=== PATIENT | male | born 1975 | race African-American/Black ===

== ENCOUNTER 2020-09-30 11:24 | Inpatient (IN) | payer OTHER, MEDICAID ==
[~2020-09-30] VITALS: Ht 180.3 cm; Wt 131.1 kg
[2020-09-30] MEDS ORDERED: ACETAMINOPHEN 325MG TABLET PO STA (11:45)
[2020-09-30] MEDS ORDERED: DEXAMETHASONE 4MG/ML 1ML VIAL IV ONE (11:45)
[2020-09-30 12:22] LABS: BASOPHILS % 0.1 % (0.0-2.0); HEMATOCRIT. 43.2 % (42.0-52.0); HEMOGLOBIN. 14.6 g/dL (14.0-18.0); LYMPHOCYTES % 17.6 % (20.0-50.0); MEAN CORPUSCULAR HEMOGLOBIN 30.9 pg (28.0-32.0); MEAN CORPUSCULAR VOLUME 91.6 fL (80.0-94.0); MEAN PLATELET VOLUME 8.3 fl (7.4-10.4); MONOCYTES % 10.7 % (2.0-8.0); NEUTROPHILS % 71.6 % (40.0-76.0); PLATELET 121 x1000/uL (130-400); RED BLOOD CELL COUNT 4.72 mill/uL (4.7-6.1); RED CELL DISTRIBUTION WIDTH 14.4 % (11.6-14.6)
[2020-09-30 12:27] LABS: CHLORIDE 109 mEq/L (98-107)
[2020-09-30] MEDS ORDERED: DEXAMETHASONE 10 MG/ML VIAL IV NR (12:45)
[2020-09-30] MEDS ORDERED: ZOLPIDEM TARTRATE 5MG TABLET PO PRN (15:30)
[2020-09-30] MEDS ORDERED: KETOROLAC 15MG/ML VIAL IV PRN (15:30)
[2020-09-30] MEDS ORDERED: CLONIDINE 0.1MG TABLET PO PRN (15:30)
[2020-09-30] MEDS ORDERED: MAGNESIUM/ALUMINUM HYDROXIDE/SIMETHICONE 30ML UDC PO PRN (15:30)
[2020-09-30] MEDS ORDERED: ONDANSETRON HCL 4MG/2ML INJ IV PRN (15:30)
[2020-09-30] MEDS ORDERED: ALBUTEROL 6.7GM HFA INHALER ORI PRN (15:30)
[2020-09-30] MEDS ORDERED: NITROGLYCERIN 0.4MG TABLET SL SL PRN (15:30)
[2020-09-30 16:36] LABS: FOLIC ACID (FOLATE) SERUM 12.7 ng/mL (>5.38)
[2020-09-30] MEDS ORDERED: AZITHROMYCIN 500 MG in DEXT 5% WATER 250 ML IV SCH (17:30)
[2020-09-30] MEDS: GUAIFENESIN/DM 600MG/30MG ER TAB 12HR PO SCH (17:57)
[2020-09-30] MEDS: ENOXAPARIN 30MG/0.3ML SYR SUBCUT SCH (18:00)
[2020-09-30] MEDS: ALBUTEROL 6.7GM HFA INHALER ORI SCH (21:00)
[2020-09-30 22:00] VITALS: BP 140/89
[2020-09-30] MEDS: FAMOTIDINE 20MG TABLET PO SCH (22:13)
[2020-09-30] MEDS: ASCORBIC ACID 500 MG TABLET PO SCH (22:13)
[2020-10-01] VITALS: BP 130/83
[2020-10-01 00:28] LABS: CREATINE KINASE 177 IU/L (39-308)
[2020-10-01 00:29] LABS: CREATINE KINASE MB FRACTION 1.7 ng/mL (0.5-3.6)
[2020-10-01] MEDS: ALBUTEROL 6.7GM HFA INHALER ORI SCH (03:00)
[2020-10-01] MEDS: GUAIFENESIN 200MG/10ML SUGAR FREE UDC PO PRN (03:50)
[2020-10-01 04:00] VITALS: BP 128/88
[2020-10-01] MEDS: GUAIFENESIN/DM 600MG/30MG ER TAB 12HR PO SCH ×2 (05:11→17:14)
[2020-10-01 06:07] LABS: CHLORIDE 107 mEq/L (98-107)
[2020-10-01 06:11] LABS: BASOPHILS % 0.1 % (0.0-2.0); HEMATOCRIT. 40.1 % (42.0-52.0); HEMOGLOBIN. 13.8 g/dL (14.0-18.0); LYMPHOCYTES % 12.6 % (20.0-50.0); MEAN CORPUSCULAR VOLUME 90.3 fL (80.0-94.0); MEAN PLATELET VOLUME 8.8 fl (7.4-10.4); MONOCYTES % 9.5 % (2.0-8.0); NEUTROPHILS % 77.8 % (40.0-76.0); PLATELET 130 x1000/uL (130-400); RED BLOOD CELL COUNT 4.45 mill/uL (4.7-6.1); RED CELL DISTRIBUTION WIDTH 14.1 % (11.6-14.6)
[2020-10-01 06:17] LABS: PHOSPHORUS 3.6 mg/dL (2.5-4.9)
[2020-10-01 06:19] LABS: CREATINE KINASE 137 IU/L (39-308)
[2020-10-01 06:23] LABS: CREATINE KINASE MB FRACTION 1.4 ng/mL (0.5-3.6)
[2020-10-01 08:00] VITALS: BP 131/88
[2020-10-01] MEDS: CHOLECALCIFEROL (D3) 1000 UNIT TABLET PO SCH (08:47)
[2020-10-01] MEDS: DEXAMETHASONE 10 MG/ML VIAL IV SCH (08:47)
[2020-10-01] MEDS: ASCORBIC ACID 500 MG TABLET PO SCH ×2 (08:47→21:11)
[2020-10-01] MEDS: FAMOTIDINE 20MG TABLET PO SCH ×2 (08:47→21:11)
[2020-10-01] MEDS: ZINC SULFATE 220 MG ( 50 ) CAPSULE PO SCH (08:47)
[2020-10-01] MEDS: ENOXAPARIN 30MG/0.3ML SYR SUBCUT SCH (08:47)
[2020-10-01] MEDS: ACETAMINOPHEN 325MG TABLET PO PRN (09:13)
[2020-10-01 12:00] VITALS: BP 127/79
[2020-10-01 16:00] VITALS: BP 138/84
[2020-10-01] MEDS ORDERED: CEFTRIAXONE 1 G PREMIX 50 ML IV SCH (16:30)
[2020-10-01] MEDS: ENOXAPARIN 40MG/0.4ML SYR SUBCUT SCH (17:14)
[2020-10-01] MEDS: AZITHROMYCIN 500 MG in DEXT 5% WATER 250 ML IV SCH (17:53)
[2020-10-01] MEDS: CEFTRIAXONE 1,000 MG in DEXTROSE 5% WATER 50 ML IV SCH (19:56)
[2020-10-01 20:00] VITALS: BP 136/85
[2020-10-02] VITALS: BP 125/85
[2020-10-02 04:00] VITALS: BP 127/89
[2020-10-02] MEDS: ENOXAPARIN 40MG/0.4ML SYR SUBCUT SCH ×2 (06:20→17:07)
[2020-10-02] MEDS: GUAIFENESIN/DM 600MG/30MG ER TAB 12HR PO SCH ×2 (06:20→17:06)
[2020-10-02 08:00] VITALS: BP 133/92
[2020-10-02] MEDS: ZINC SULFATE 220 MG ( 50 ) CAPSULE PO SCH (08:26)
[2020-10-02] MEDS: FAMOTIDINE 20MG TABLET PO SCH ×2 (08:26→20:47)
[2020-10-02] MEDS: GUAIFENESIN 200MG/10ML SUGAR FREE UDC PO PRN ×2 (08:26→14:20)
[2020-10-02] MEDS: CHOLECALCIFEROL (D3) 1000 UNIT TABLET PO SCH (08:26)
[2020-10-02] MEDS: ASCORBIC ACID 500 MG TABLET PO SCH ×2 (08:26→20:47)
[2020-10-02] MEDS: DEXAMETHASONE 10 MG/ML VIAL IV SCH (08:29)
[2020-10-02] MEDS: ALBUTEROL 6.7GM HFA INHALER ORI SCH ×3 (10:49→20:47)
[2020-10-02 12:00] VITALS: BP 127/79
[2020-10-02 16:00] VITALS: BP 132/72
[2020-10-02] MEDS: AZITHROMYCIN 500 MG in DEXT 5% WATER 250 ML IV SCH (17:06)
[2020-10-02] MEDS: CEFTRIAXONE 1,000 MG in DEXTROSE 5% WATER 50 ML IV SCH (18:00)
[2020-10-02 20:25] VITALS: BP 142/93
[2020-10-03] VITALS: BP 134/92
[2020-10-03] MEDS: ALBUTEROL 6.7GM HFA INHALER ORI SCH ×4 (03:00→21:27)
[2020-10-03 04:00] VITALS: BP 128/91
[2020-10-03] MEDS: ENOXAPARIN 40MG/0.4ML SYR SUBCUT SCH ×2 (05:21→18:30)
[2020-10-03] MEDS: GUAIFENESIN/DM 600MG/30MG ER TAB 12HR PO SCH ×2 (05:21→18:30)
[2020-10-03 08:00] VITALS: BP 120/79
[2020-10-03] MEDS: DEXAMETHASONE 10 MG/ML VIAL IV SCH (08:53)
[2020-10-03] MEDS: CHOLECALCIFEROL (D3) 1000 UNIT TABLET PO SCH (08:54)
[2020-10-03] MEDS: ASCORBIC ACID 500 MG TABLET PO SCH ×2 (08:54→21:27)
[2020-10-03] MEDS: ZINC SULFATE 220 MG ( 50 ) CAPSULE PO SCH (08:54)
[2020-10-03] MEDS: FAMOTIDINE 20MG TABLET PO SCH ×2 (08:54→21:27)
[2020-10-03 12:00] VITALS: BP 124/84
[2020-10-03 16:00] VITALS: BP 126/81
[2020-10-03] MEDS: CEFTRIAXONE 1,000 MG in DEXTROSE 5% WATER 50 ML IV SCH (18:30)
[2020-10-03] MEDS: AZITHROMYCIN 500 MG in DEXT 5% WATER 250 ML IV SCH (19:10)
[2020-10-03 20:00] VITALS: BP 148/94
[2020-10-04] VITALS: BP 140/74
[2020-10-04] MEDS: ALBUTEROL 6.7GM HFA INHALER ORI SCH ×4 (03:23→21:42)
[2020-10-04 04:00] VITALS: BP 115/83
[2020-10-04] MEDS: GUAIFENESIN/DM 600MG/30MG ER TAB 12HR PO SCH ×2 (05:26→17:57)
[2020-10-04] MEDS: ENOXAPARIN 40MG/0.4ML SYR SUBCUT SCH ×2 (05:26→17:57)
[2020-10-04 08:00] VITALS: BP 137/90
[2020-10-04] MEDS: FAMOTIDINE 20MG TABLET PO SCH ×2 (08:51→21:42)
[2020-10-04] MEDS: CHOLECALCIFEROL (D3) 1000 UNIT TABLET PO SCH (08:51)
[2020-10-04] MEDS: DEXAMETHASONE 10 MG/ML VIAL IV SCH (08:51)
[2020-10-04] MEDS: ASCORBIC ACID 500 MG TABLET PO SCH ×2 (08:51→21:42)
[2020-10-04] MEDS: ACETAMINOPHEN 325MG TABLET PO PRN (08:51)
[2020-10-04] MEDS: ZINC SULFATE 220 MG ( 50 ) CAPSULE PO SCH (08:52)
[2020-10-04 12:00] VITALS: BP 128/86
[2020-10-04 16:00] VITALS: BP 128/88
[2020-10-04] MEDS: CEFTRIAXONE 1,000 MG in DEXTROSE 5% WATER 50 ML IV SCH (17:57)
[2020-10-04] MEDS: AZITHROMYCIN 500 MG in DEXT 5% WATER 250 ML IV SCH (18:45)
[2020-10-04 20:00] VITALS: BP 128/83
[2020-10-05] VITALS: BP 117/84
[2020-10-05] MEDS: ALBUTEROL 6.7GM HFA INHALER ORI SCH ×4 (03:50→21:20)
[2020-10-05 04:00] VITALS: BP 123/77
[2020-10-05] MEDS: GUAIFENESIN/DM 600MG/30MG ER TAB 12HR PO SCH ×2 (05:15→18:22)
[2020-10-05] MEDS: ENOXAPARIN 40MG/0.4ML SYR SUBCUT SCH ×2 (05:16→18:22)
[2020-10-05 08:00] VITALS: BP 110/62
[2020-10-05] MEDS: FAMOTIDINE 20MG TABLET PO SCH ×2 (08:18→21:19)
[2020-10-05] MEDS: CHOLECALCIFEROL (D3) 1000 UNIT TABLET PO SCH (08:18)
[2020-10-05] MEDS: ZINC SULFATE 220 MG ( 50 ) CAPSULE PO SCH (08:18)
[2020-10-05] MEDS: ASCORBIC ACID 500 MG TABLET PO SCH ×2 (08:18→21:19)
[2020-10-05] MEDS: ACETAMINOPHEN 325MG TABLET PO PRN (08:18)
[2020-10-05] MEDS: DEXAMETHASONE 10 MG/ML VIAL IV SCH (08:18)
[2020-10-05 12:00] VITALS: BP 134/91
[2020-10-05 15:50] VITALS: BP 130/76
[2020-10-05] MEDS: CEFTRIAXONE 1,000 MG in DEXTROSE 5% WATER 50 ML IV SCH (18:22)
[2020-10-05 20:00] VITALS: BP 128/89
[2020-10-06] VITALS: BP 133/86
[2020-10-06] MEDS: ALBUTEROL 6.7GM HFA INHALER ORI SCH ×4 (02:46→21:43)
[2020-10-06] MEDS: GUAIFENESIN 200MG/10ML SUGAR FREE UDC PO PRN (02:46)
[2020-10-06 04:00] VITALS: BP 109/70
[2020-10-06] MEDS: GUAIFENESIN/DM 600MG/30MG ER TAB 12HR PO SCH ×2 (06:12→18:05)
[2020-10-06] MEDS: ENOXAPARIN 40MG/0.4ML SYR SUBCUT SCH ×2 (06:13→18:05)
[2020-10-06 08:00] VITALS: BP 105/68
[2020-10-06] MEDS: ZINC SULFATE 220 MG ( 50 ) CAPSULE PO SCH (08:28)
[2020-10-06] MEDS: ASCORBIC ACID 500 MG TABLET PO SCH ×2 (08:28→21:42)
[2020-10-06] MEDS: CHOLECALCIFEROL (D3) 1000 UNIT TABLET PO SCH (08:28)
[2020-10-06] MEDS: FAMOTIDINE 20MG TABLET PO SCH ×2 (08:28→21:42)
[2020-10-06] MEDS: ACETAMINOPHEN 325MG TABLET PO PRN (08:29)
[2020-10-06] MEDS: DEXAMETHASONE 10 MG/ML VIAL IV SCH (08:29)
[2020-10-06 12:00] VITALS: BP 108/59
[2020-10-06 16:00] VITALS: BP 121/84
[2020-10-06] MEDS: CEFTRIAXONE 1,000 MG in DEXTROSE 5% WATER 50 ML IV SCH (18:05)
[2020-10-06 20:00] VITALS: BP 131/88
[2020-10-07] VITALS: BP 129/79
[2020-10-07] MEDS: GUAIFENESIN 200MG/10ML SUGAR FREE UDC PO PRN (01:36)
[2020-10-07] MEDS: ALBUTEROL 6.7GM HFA INHALER ORI SCH ×4 (03:24→21:18)
[2020-10-07 04:00] VITALS: BP 121/85
[2020-10-07] MEDS: GUAIFENESIN/DM 600MG/30MG ER TAB 12HR PO SCH ×2 (06:11→17:29)
[2020-10-07] MEDS: ENOXAPARIN 40MG/0.4ML SYR SUBCUT SCH ×2 (06:11→17:30)
[2020-10-07 08:00] VITALS: BP 119/78
[2020-10-07] MEDS: FAMOTIDINE 20MG TABLET PO SCH ×2 (08:51→21:18)
[2020-10-07] MEDS: DEXAMETHASONE 10 MG/ML VIAL IV SCH (08:51)
[2020-10-07] MEDS: CHOLECALCIFEROL (D3) 1000 UNIT TABLET PO SCH (08:51)
[2020-10-07] MEDS: ASCORBIC ACID 500 MG TABLET PO SCH ×2 (08:51→21:18)
[2020-10-07] MEDS: ZINC SULFATE 220 MG ( 50 ) CAPSULE PO SCH (08:51)
[2020-10-07 12:00] VITALS: BP 133/76
[2020-10-07 16:00] VITALS: BP 128/83
[2020-10-07 20:00] VITALS: BP 129/83
[2020-10-08] VITALS (7 sets, daily range): BP systolic 106–123; BP diastolic 62–75
[2020-10-08] MEDS: ALBUTEROL 6.7GM HFA INHALER ORI SCH ×4 (03:51→21:05)
[2020-10-08] MEDS: ACETAMINOPHEN 325MG TABLET PO PRN ×2 (03:53→08:39)
[2020-10-08] MEDS: ENOXAPARIN 40MG/0.4ML SYR SUBCUT SCH ×2 (06:00→17:06)
[2020-10-08] MEDS: GUAIFENESIN/DM 600MG/30MG ER TAB 12HR PO SCH ×2 (06:00→17:06)
[2020-10-08] MEDS: GUAIFENESIN 200MG/10ML SUGAR FREE UDC PO PRN (07:57)
[2020-10-08] MEDS: CHOLECALCIFEROL (D3) 1000 UNIT TABLET PO SCH (08:00)
[2020-10-08] MEDS: DEXAMETHASONE 10 MG/ML VIAL IV SCH (08:00)
[2020-10-08] MEDS: ZINC SULFATE 220 MG ( 50 ) CAPSULE PO SCH (08:00)
[2020-10-08] MEDS: FAMOTIDINE 20MG TABLET PO SCH ×2 (08:00→21:05)
[2020-10-08] MEDS: ASCORBIC ACID 500 MG TABLET PO SCH ×2 (08:00→21:05)
[2020-10-09] MEDS: GUAIFENESIN 200MG/10ML SUGAR FREE UDC PO PRN (02:16)
[2020-10-09] MEDS: ALBUTEROL 6.7GM HFA INHALER ORI SCH ×4 (02:40→20:01)
[2020-10-09 04:00] VITALS: BP 100/70
[2020-10-09] MEDS: GUAIFENESIN/DM 600MG/30MG ER TAB 12HR PO SCH ×2 (05:23→17:04)
[2020-10-09] MEDS: ENOXAPARIN 40MG/0.4ML SYR SUBCUT SCH ×2 (05:24→17:05)
[2020-10-09] MEDS: ACETAMINOPHEN 325MG TABLET PO PRN (05:55)
[2020-10-09] MEDS: FAMOTIDINE 20MG TABLET PO SCH ×2 (08:05→20:00)
[2020-10-09] MEDS: ZINC SULFATE 220 MG ( 50 ) CAPSULE PO SCH (08:05)
[2020-10-09] MEDS: ASCORBIC ACID 500 MG TABLET PO SCH ×2 (08:05→20:00)
[2020-10-09] MEDS: DEXAMETHASONE 10 MG/ML VIAL IV SCH (08:05)
[2020-10-09] MEDS: CHOLECALCIFEROL (D3) 1000 UNIT TABLET PO SCH (08:05)
[2020-10-09 20:00] VITALS: BP 124/84
[2020-10-10] VITALS: BP 117/72
[2020-10-10] MEDS: ALBUTEROL 6.7GM HFA INHALER ORI SCH ×4 (01:39→20:42)
[2020-10-10 04:00] VITALS: BP 134/81
[2020-10-10] MEDS: ENOXAPARIN 40MG/0.4ML SYR SUBCUT SCH ×2 (05:50→17:44)
[2020-10-10] MEDS: GUAIFENESIN/DM 600MG/30MG ER TAB 12HR PO SCH ×2 (05:50→17:45)
[2020-10-10 06:58] LABS: CHLORIDE 105 mEq/L (98-107)
[2020-10-10 07:00] LABS: HEMATOCRIT. 40.4 % (42.0-52.0); HEMOGLOBIN. 13.8 g/dL (14.0-18.0); MEAN CORPUSCULAR HEMOGLOBIN 31.3 pg (28.0-32.0); MEAN CORPUSCULAR VOLUME 91.4 fL (80.0-94.0); MEAN PLATELET VOLUME 8.5 fl (7.4-10.4); PLATELET 220 x1000/uL (130-400); RED BLOOD CELL COUNT 4.42 mill/uL (4.7-6.1); RED CELL DISTRIBUTION WIDTH 14.2 % (11.6-14.6)
[2020-10-10 08:00] VITALS: BP 120/89
[2020-10-10] MEDS: FAMOTIDINE 20MG TABLET PO SCH ×2 (09:27→20:42)
[2020-10-10] MEDS: DEXAMETHASONE 10 MG/ML VIAL IV SCH (09:27)
[2020-10-10] MEDS: ZINC SULFATE 220 MG ( 50 ) CAPSULE PO SCH (09:28)
[2020-10-10] MEDS: CHOLECALCIFEROL (D3) 1000 UNIT TABLET PO SCH (09:28)
[2020-10-10] MEDS: ASCORBIC ACID 500 MG TABLET PO SCH ×2 (09:28→20:42)
[2020-10-10] MEDS: GUAIFENESIN 200MG/10ML SUGAR FREE UDC PO PRN (10:47)
[2020-10-10 12:00] VITALS: BP 112/78
[2020-10-10 16:00] VITALS: BP 116/86
[2020-10-10 17:30] LABS: PLATELET ESTIMATE NORMAL
[2020-10-10 20:00] VITALS: BP 135/83
[2020-10-11] VITALS (8 sets, daily range): BP systolic 80–146; BP diastolic 66–85
[2020-10-11] MEDS: ENOXAPARIN 40MG/0.4ML SYR SUBCUT SCH ×2 (05:20→18:03)
[2020-10-11] MEDS: ALBUTEROL 6.7GM HFA INHALER ORI SCH ×4 (05:20→20:25)
[2020-10-11] MEDS: GUAIFENESIN/DM 600MG/30MG ER TAB 12HR PO SCH ×2 (05:20→18:03)
[2020-10-11] MEDS: ZINC SULFATE 220 MG ( 50 ) CAPSULE PO SCH (09:00)
[2020-10-11] MEDS: CHOLECALCIFEROL (D3) 1000 UNIT TABLET PO SCH (09:00)
[2020-10-11] MEDS: ASCORBIC ACID 500 MG TABLET PO SCH ×2 (09:00→20:22)
[2020-10-11] MEDS: DEXAMETHASONE 10 MG/ML VIAL IV SCH (09:00)
[2020-10-11] MEDS: FAMOTIDINE 20MG TABLET PO SCH ×2 (09:00→20:22)
[2020-10-12] VITALS (75 sets, daily range): BP systolic 110–173; BP diastolic 43–111
[2020-10-12 05:10] LABS: CHLORIDE 106 mEq/L (98-107); MEAN CORPUSCULAR HEMOGLOBIN 30.9 pg (28.0-32.0); MEAN CORPUSCULAR VOLUME 92.7 fL (80.0-94.0); MEAN PLATELET VOLUME 8.7 fl (7.4-10.4); PLATELET 186 x1000/uL (130-400); RED BLOOD CELL COUNT 4.86 mill/uL (4.7-6.1); RED CELL DISTRIBUTION WIDTH 14.4 % (11.6-14.6)
[2020-10-12] MEDS: ENOXAPARIN 40MG/0.4ML SYR SUBCUT SCH ×2 (06:33→18:53)
[2020-10-12] MEDS: GUAIFENESIN/DM 600MG/30MG ER TAB 12HR PO SCH (06:33)
[2020-10-12 08:37] LABS: BG BASE EXCESS -0.9 mmol/L (-2.0-2.0); BG CARBOXYHEMOGLOBIN 0.5 % (0.5-1.5); BG DEOXYHEMOGLOBIN 5.2 % (0.0-5.0); BG HCO3 ACT 23.3 mmol/L (22.0-26.0); BG METHEMOGLOBIN 0.1 % (0.0-1.5); BG OXYGEN SATURATION 94.8 % (92.0-98.5); BG OXYHEMOGLOBIN 94.2 % (94.0-97.0); BG PCO2 37.5 mmHg (35.0-45.0); BG PH 7.411 (7.350-7.450); BG PO2 79.8 mmHg (75.0-100.0); BG SAMPLE SITE RIGHT RADIAL; BG TOTAL HEMOGLOBIN 15.1 g/dL (12.0-18.0); BG VENT MODE MASK - CPAP
[2020-10-12] MEDS: ASCORBIC ACID 500 MG TABLET PO SCH ×2 (09:23→20:09)
[2020-10-12] MEDS: DEXAMETHASONE 10 MG/ML VIAL IV SCH (09:23)
[2020-10-12] MEDS: ZINC SULFATE 220 MG ( 50 ) CAPSULE PO SCH (09:23)
[2020-10-12] MEDS: CHOLECALCIFEROL (D3) 1000 UNIT TABLET PO SCH (09:23)
[2020-10-12] MEDS: FAMOTIDINE 20MG TABLET PO SCH ×2 (09:23→20:09)
[2020-10-12] MEDS ORDERED: LOPERAMIDE HCL 2MG CAPSULE PO PRN (13:00)
[2020-10-12 17:01] LABS: PLATELET ESTIMATE NORMAL
[2020-10-12] MEDS: IPRATROPIUM/ALBUTEROL 0.5-3(2.5)MG/3ML NEB HHN SCH (20:32)
[2020-10-13] VITALS (48 sets, daily range): BP systolic 72–160; BP diastolic 31–97
[2020-10-13] MEDS: IPRATROPIUM/ALBUTEROL 0.5-3(2.5)MG/3ML NEB HHN SCH ×4 (00:48→21:14)
[2020-10-13] MEDS: ENOXAPARIN 40MG/0.4ML SYR SUBCUT SCH (06:16)
[2020-10-13] MEDS: FAMOTIDINE 20MG TABLET PO SCH ×2 (09:32→21:47)
[2020-10-13] MEDS: ASCORBIC ACID 500 MG TABLET PO SCH ×2 (09:32→21:47)
[2020-10-13] MEDS: ZINC SULFATE 220 MG ( 50 ) CAPSULE PO SCH (09:32)
[2020-10-13] MEDS: DEXAMETHASONE 10 MG/ML VIAL IV SCH (09:32)
[2020-10-13] MEDS: CHOLECALCIFEROL (D3) 1000 UNIT TABLET PO SCH (09:32)
[2020-10-13] MEDS: DEXT 5%/0.45% NACL 1000ML 1,000 ML IV SCH (10:58)
[2020-10-13] MEDS: CEFEPIME 2,000 MG in DEXT 5% WATER 100 ML IV SCH (13:58)
[2020-10-13] MEDS: ENOXAPARIN 30MG/0.3ML SYR SUBCUT SCH (17:26)
[2020-10-14] VITALS (41 sets, daily range): BP systolic 99–152; BP diastolic 42–107
[2020-10-14] MEDS: IPRATROPIUM/ALBUTEROL 0.5-3(2.5)MG/3ML NEB HHN SCH ×4 (01:06→20:38)
[2020-10-14] MEDS: ENOXAPARIN 30MG/0.3ML SYR SUBCUT SCH ×2 (05:13→17:35)
[2020-10-14] MEDS: DEXT 5%/0.45% NACL 1000ML 1,000 ML IV SCH (07:52)
[2020-10-14] MEDS: GUAIFENESIN 200MG/10ML SUGAR FREE UDC PO PRN (08:46)
[2020-10-14] MEDS: FAMOTIDINE 20MG TABLET PO SCH ×2 (08:47→20:50)
[2020-10-14] MEDS: DEXAMETHASONE 10 MG/ML VIAL IV SCH (08:47)
[2020-10-14] MEDS: ASCORBIC ACID 500 MG TABLET PO SCH ×2 (08:48→20:50)
[2020-10-14] MEDS: CHOLECALCIFEROL (D3) 1000 UNIT TABLET PO SCH (08:48)
[2020-10-14] MEDS: ZINC SULFATE 220 MG ( 50 ) CAPSULE PO SCH (08:54)
[2020-10-14 10:08] LABS: BG BASE EXCESS 2.9 mmol/L (-2.0-2.0); BG CARBOXYHEMOGLOBIN 0.1 % (0.5-1.5); BG DEOXYHEMOGLOBIN 10.1 % (0.0-5.0); BG FRACTION INSPIRED OXYGEN 100; BG HCO3 ACT 28.2 mmol/L (22.0-26.0); BG METHEMOGLOBIN 0.3 % (0.0-1.5); BG OXYGEN SATURATION 89.9 % (92.0-98.5); BG OXYHEMOGLOBIN 89.5 % (94.0-97.0); BG PCO2 45.3 mmHg (35.0-45.0); BG PH 7.412 (7.350-7.450); BG PO2 60.4 mmHg (75.0-100.0); BG SAMPLE SITE LEFT RADIAL; BG TOTAL HEMOGLOBIN 15.9 g/dL (12.0-18.0); BG TOTAL RESPIRATORY RATE 30 b/min; BG VENT MODE VENT - CPAP
[2020-10-14] MEDS: CEFEPIME 2,000 MG in DEXT 5% WATER 100 ML IV SCH ×3 (11:40→23:50)
[2020-10-15] VITALS (44 sets, daily range): BP systolic 113–171; BP diastolic 63–118
[2020-10-15] MEDS: IPRATROPIUM/ALBUTEROL 0.5-3(2.5)MG/3ML NEB HHN SCH ×4 (02:07→20:53)
[2020-10-15] MEDS: DEXT 5%/0.45% NACL 1000ML 1,000 ML IV SCH ×2 (02:44→18:26)
[2020-10-15] MEDS: ENOXAPARIN 30MG/0.3ML SYR SUBCUT SCH ×2 (06:35→18:06)
[2020-10-15] MEDS: ASCORBIC ACID 500 MG TABLET PO SCH ×2 (09:42→20:13)
[2020-10-15] MEDS: CHOLECALCIFEROL (D3) 1000 UNIT TABLET PO SCH (09:42)
[2020-10-15] MEDS: DEXAMETHASONE 10 MG/ML VIAL IV SCH (09:42)
[2020-10-15] MEDS: ZINC SULFATE 220 MG ( 50 ) CAPSULE PO SCH (09:42)
[2020-10-15] MEDS: FAMOTIDINE 20MG TABLET PO SCH ×2 (09:43→20:13)
[2020-10-15] MEDS: CEFEPIME 2,000 MG in DEXT 5% WATER 100 ML IV SCH ×2 (12:18→23:38)
[2020-10-15 12:25] LABS: HEMATOCRIT. 41.5 % (42.0-52.0); HEMOGLOBIN. 13.9 g/dL (14.0-18.0); MEAN CORPUSCULAR HEMOGLOBIN 30.4 pg (28.0-32.0); MEAN CORPUSCULAR VOLUME 91.1 fL (80.0-94.0); MEAN PLATELET VOLUME 8.3 fl (7.4-10.4); PLATELET 173 x1000/uL (130-400); RED BLOOD CELL COUNT 4.56 mill/uL (4.7-6.1); RED CELL DISTRIBUTION WIDTH 14.1 % (11.6-14.6)
[2020-10-15 12:28] LABS: CHLORIDE 107 mEq/L (98-107)
[2020-10-15 14:46] LABS: PLATELET ESTIMATE NORMAL
[2020-10-15] MEDS ORDERED: LORAZEPAM 2MG/ML CPJ IV PRN (19:15)
[2020-10-16] VITALS (48 sets, daily range): BP systolic 111–170; BP diastolic 34–108
[2020-10-16] MEDS: IPRATROPIUM/ALBUTEROL 0.5-3(2.5)MG/3ML NEB HHN SCH ×4 (01:23→21:05)
[2020-10-16] MEDS: ENOXAPARIN 30MG/0.3ML SYR SUBCUT SCH ×2 (06:08→17:58)
[2020-10-16] MEDS: CHOLECALCIFEROL (D3) 1000 UNIT TABLET PO SCH (08:39)
[2020-10-16] MEDS: DEXAMETHASONE 10 MG/ML VIAL IV SCH (08:39)
[2020-10-16] MEDS: ZINC SULFATE 220 MG ( 50 ) CAPSULE PO SCH (08:39)
[2020-10-16] MEDS: FAMOTIDINE 20MG TABLET PO SCH ×2 (08:39→21:11)
[2020-10-16] MEDS: ASCORBIC ACID 500 MG TABLET PO SCH ×2 (08:39→21:11)
[2020-10-16] MEDS: CEFEPIME 2,000 MG in DEXT 5% WATER 100 ML IV SCH ×2 (11:53→23:42)
[2020-10-16] MEDS: DEXT 5%/0.45% NACL 1000ML 1,000 ML IV SCH (15:26)
[2020-10-17] VITALS (89 sets, daily range): BP systolic 62–260; BP diastolic 41–139
[2020-10-17] MEDS: IPRATROPIUM/ALBUTEROL 0.5-3(2.5)MG/3ML NEB HHN SCH ×4 (00:45→20:34)
[2020-10-17 02:01] LABS: BG BASE EXCESS 1.4 mmol/L (-2.0-2.0); BG CARBOXYHEMOGLOBIN 0.8 % (0.5-1.5); BG DEOXYHEMOGLOBIN 27.2 % (0.0-5.0); BG FRACTION INSPIRED OXYGEN 100; BG HCO3 ACT 26.1 mmol/L (22.0-26.0); BG METHEMOGLOBIN 0.3 % (0.0-1.5); BG OXYGEN SATURATION 72.5 % (92.0-98.5); BG OXYHEMOGLOBIN 71.7 % (94.0-97.0); BG PCO2 41.5 mmHg (35.0-45.0); BG PH 7.416 (7.350-7.450); BG PO2 39.1 mmHg (75.0-100.0); BG SAMPLE SITE RIGHT RADIAL; BG TOTAL HEMOGLOBIN 15.6 g/dL (12.0-18.0); BG VENT MODE MASK - CPAP
[2020-10-17] MEDS: PROPOFOL 10MG/ML 100ML 100 ML IV PRN ×6 (04:00→20:32)
[2020-10-17 04:02] LABS: BG BASE EXCESS -2.4 mmol/L (-2.0-2.0); BG CARBOXYHEMOGLOBIN 1.2 % (0.5-1.5); BG DEOXYHEMOGLOBIN 50.2 % (0.0-5.0); BG FRACTION INSPIRED OXYGEN 100; BG OXYGEN SATURATION 49.2 % (92.0-98.5); BG OXYHEMOGLOBIN 48.6 % (94.0-97.0); BG PCO2 59.3 mmHg (35.0-45.0); BG SAMPLE SITE RIGHT RADIAL; BG TOTAL HEMOGLOBIN 16.1 g/dL (12.0-18.0); BG VENT MODE PRVC
[2020-10-17] MEDS: FENTANYL CITRATE/PF 2,500 MCG in SODIUM CHLORIDE 0.9% 200 ML IV PRN ×3 (04:50→18:39)
[2020-10-17] MEDS: MIDAZOLAM HCL 100 MG in SODIUM CHLORIDE 0.9% 80 ML IV PRN ×3 (04:54→23:20)
[2020-10-17] MEDS: PHENYLEPHRINE 100 MG in DEXT 5% WATER 240 ML IV PRN ×4 (06:15→23:32)
[2020-10-17] MEDS: ENOXAPARIN 30MG/0.3ML SYR SUBCUT SCH ×2 (06:27→17:51)
[2020-10-17] MEDS ORDERED: VECURONIUM BROMIDE 10 MG/VIAL IV ONE (08:37)
[2020-10-17] MEDS ORDERED: ATROPINE SULFATE 1MG/10ML SYR ONE (08:37)
[2020-10-17] MEDS ORDERED: SUCCINYLCHOLINE CHLORIDE 200MG/10ML IV ONE (08:37)
[2020-10-17] MEDS ORDERED: SODIUM CHLORIDE 0.9% INJ 10ML FLUSH IVF ONE (08:37)
[2020-10-17] MEDS ORDERED: ETOMIDATE 2MG/ML 10ML VIAL IV ONE (08:37)
[2020-10-17] MEDS ORDERED: NOREPINEPHRINE 8MG/250ML PMX 250 ML IV PRN (09:30)
[2020-10-17] MEDS ORDERED: NOREPINEPHRINE 8 MG in DEXTROSE 5% WATER 250 ML IV PRN (09:30)
[2020-10-17] MEDS ORDERED: VASOPRESSIN 20 UNIT in SODIUM CHLORIDE 0.9% 99 ML IV PRN (09:30)
[2020-10-17] MEDS: ZINC SULFATE 220 MG ( 50 ) CAPSULE PO SCH (10:16)
[2020-10-17] MEDS: CHOLECALCIFEROL (D3) 1000 UNIT TABLET PO SCH (10:16)
[2020-10-17] MEDS: FAMOTIDINE 20MG TABLET PO SCH ×2 (10:16→20:31)
[2020-10-17] MEDS: ASCORBIC ACID 500 MG TABLET PO SCH ×2 (10:16→20:31)
[2020-10-17] MEDS: DEXAMETHASONE 10 MG/ML VIAL IV SCH (10:16)
[2020-10-17] MEDS ORDERED: LIDOCAINE HCL 1% 20ML VIAL (Pyxis) INJ ONE (11:43)
[2020-10-17] MEDS: CEFEPIME 2,000 MG in DEXT 5% WATER 100 ML IV SCH ×2 (12:29→23:20)
[2020-10-17] MEDS: DEXT 5%/0.45% NACL 1000ML 1,000 ML IV SCH (14:31)
[2020-10-17 17:05] LABS: BG BASE EXCESS -1.1 mmol/L (-2.0-2.0); BG CARBOXYHEMOGLOBIN 0.7 % (0.5-1.5); BG DEOXYHEMOGLOBIN 2.4 % (0.0-5.0); BG FRACTION INSPIRED OXYGEN 100; BG HCO3 ACT 25.5 mmol/L (22.0-26.0); BG METHEMOGLOBIN 0.3 % (0.0-1.5); BG OXYGEN SATURATION 97.6 % (92.0-98.5); BG OXYHEMOGLOBIN 96.6 % (94.0-97.0); BG PCO2 49.5 mmHg (35.0-45.0); BG PH 7.329 (7.350-7.450); BG PO2 110.6 mmHg (75.0-100.0); BG SAMPLE SITE RIGHT RADIAL; BG TOTAL HEMOGLOBIN 15.4 g/dL (12.0-18.0); BG VENT MODE VENT - PRVC
[2020-10-18] VITALS (97 sets, daily range): BP systolic 83–133; BP diastolic 51–93
[2020-10-18] MEDS: IPRATROPIUM/ALBUTEROL 0.5-3(2.5)MG/3ML NEB HHN SCH ×4 (00:34→20:32)
[2020-10-18] MEDS ORDERED: PROPOFOL 10MG/ML 100ML 100 ML IV PRN ×2 (02:30→09:30)
[2020-10-18] MEDS: FENTANYL CITRATE/PF 2,500 MCG in SODIUM CHLORIDE 0.9% 200 ML IV PRN ×2 (03:18→16:24)
[2020-10-18] MEDS: ENOXAPARIN 30MG/0.3ML SYR SUBCUT SCH ×2 (05:40→17:03)
[2020-10-18] MEDS: CHOLECALCIFEROL (D3) 1000 UNIT TABLET PO SCH (08:35)
[2020-10-18] MEDS: DEXAMETHASONE 10 MG/ML VIAL IV SCH (08:35)
[2020-10-18] MEDS: ZINC SULFATE 220 MG ( 50 ) CAPSULE PO SCH (08:35)
[2020-10-18] MEDS: FAMOTIDINE 20MG TABLET PO SCH ×2 (08:35→21:06)
[2020-10-18] MEDS: ASCORBIC ACID 500 MG TABLET PO SCH ×2 (08:35→21:06)
[2020-10-18] MEDS: DEXT 5%/0.45% NACL 1000ML 1,000 ML IV SCH (08:36)
[2020-10-18 09:05] LABS: BG BASE EXCESS -1.6 mmol/L (-2.0-2.0); BG CARBOXYHEMOGLOBIN 0.8 % (0.5-1.5); BG DEOXYHEMOGLOBIN 5.1 % (0.0-5.0); BG FRACTION INSPIRED OXYGEN 100; BG HCO3 ACT 23.8 mmol/L (22.0-26.0); BG METHEMOGLOBIN 0.3 % (0.0-1.5); BG OXYGEN SATURATION 94.8 % (92.0-98.5); BG OXYHEMOGLOBIN 93.8 % (94.0-97.0); BG PCO2 42.8 mmHg (35.0-45.0); BG PH 7.363 (7.350-7.450); BG PO2 79.3 mmHg (75.0-100.0); BG SAMPLE SITE RIGHT RADIAL; BG TOTAL HEMOGLOBIN 13.9 g/dL (12.0-18.0); BG VENT MODE VENT - PRVC
[2020-10-18] MEDS: ACETAMINOPHEN 325MG TABLET PO PRN (09:15)
[2020-10-18] MEDS: MIDAZOLAM HCL 100 MG in SODIUM CHLORIDE 0.9% 80 ML IV PRN ×2 (09:59→21:07)
[2020-10-18] MEDS: PHENYLEPHRINE 100 MG in DEXT 5% WATER 240 ML IV PRN (11:55)
[2020-10-18] MEDS: PROPOFOL 10MG/ML 100ML 100 ML IV PRN ×2 (11:56→21:08)
[2020-10-18] MEDS: CEFEPIME 2,000 MG in DEXT 5% WATER 100 ML IV SCH (13:21)
[2020-10-19] VITALS (96 sets, daily range): BP systolic 82–126; BP diastolic 48–89
[2020-10-19] MEDS: IPRATROPIUM/ALBUTEROL 0.5-3(2.5)MG/3ML NEB HHN SCH ×4 (00:51→21:39)
[2020-10-19] MEDS: PHENYLEPHRINE 100 MG in DEXT 5% WATER 240 ML IV PRN (01:53)
[2020-10-19] MEDS: FENTANYL CITRATE/PF 2,500 MCG in SODIUM CHLORIDE 0.9% 200 ML IV PRN ×3 (02:32→20:50)
[2020-10-19] MEDS: ENOXAPARIN 30MG/0.3ML SYR SUBCUT SCH ×2 (05:32→17:20)
[2020-10-19] MEDS: DEXT 5%/0.45% NACL 1000ML 1,000 ML IV SCH (05:32)
[2020-10-19 05:44] LABS: BASOPHILS % 0.3 % (0.0-2.0); EOSINOPHILS % 0.3 % (0.0-5.0); LYMPHOCYTES % 9.2 % (20.0-50.0); MEAN CORPUSCULAR HEMOGLOBIN 30.7 pg (28.0-32.0); MEAN PLATELET VOLUME 8.1 fl (7.4-10.4); MONOCYTES % 5.7 % (2.0-8.0); NEUTROPHILS % 84.5 % (40.0-76.0); PLATELET 198 x1000/uL (130-400); RED BLOOD CELL COUNT 4.24 mill/uL (4.7-6.1); RED CELL DISTRIBUTION WIDTH 14.7 % (11.6-14.6)
[2020-10-19 05:47] LABS: CHLORIDE 110 mEq/L (98-107)
[2020-10-19] MEDS: MIDAZOLAM HCL 100 MG in SODIUM CHLORIDE 0.9% 80 ML IV PRN ×2 (06:50→17:21)
[2020-10-19] MEDS: PROPOFOL 10MG/ML 100ML 100 ML IV PRN ×3 (06:52→22:29)
[2020-10-19] MEDS: DEXAMETHASONE 10 MG/ML VIAL IV SCH (08:53)
[2020-10-19] MEDS: FAMOTIDINE 20MG TABLET PO SCH ×2 (08:53→20:58)
[2020-10-19] MEDS: ZINC SULFATE 220 MG ( 50 ) CAPSULE PO SCH (08:53)
[2020-10-19] MEDS: CHOLECALCIFEROL (D3) 1000 UNIT TABLET PO SCH (08:53)
[2020-10-19] MEDS: ASCORBIC ACID 500 MG TABLET PO SCH ×2 (08:53→20:58)
[2020-10-19 09:10] LABS: BG BASE EXCESS 0.3 mmol/L (-2.0-2.0); BG CARBOXYHEMOGLOBIN 0.9 % (0.5-1.5); BG DEOXYHEMOGLOBIN 3.7 % (0.0-5.0); BG FRACTION INSPIRED OXYGEN 75; BG HCO3 ACT 26.8 mmol/L (22.0-26.0); BG METHEMOGLOBIN 0.2 % (0.0-1.5); BG OXYGEN SATURATION 96.3 % (92.0-98.5); BG OXYHEMOGLOBIN 95.2 % (94.0-97.0); BG PCO2 51.2 mmHg (35.0-45.0); BG PH 7.337 (7.350-7.450); BG PO2 88.3 mmHg (75.0-100.0); BG SAMPLE SITE RIGHT RADIAL; BG TOTAL HEMOGLOBIN 13.5 g/dL (12.0-18.0); BG TOTAL RESPIRATORY RATE 38 b/min; BG VENT MODE VENT- PRVC
[2020-10-19] MEDS: METHYLPREDNISOLONE SOD SUCC 125 MG/2 ML VIAL IV SCH ×3 (11:35→20:59)
[2020-10-20] VITALS (95 sets, daily range): BP systolic 84–116; BP diastolic 48–71
[2020-10-20] MEDS: DEXT 5%/0.45% NACL 1000ML 1,000 ML IV SCH ×2 (01:33→21:14)
[2020-10-20] MEDS: IPRATROPIUM/ALBUTEROL 0.5-3(2.5)MG/3ML NEB HHN SCH ×4 (02:44→20:18)
[2020-10-20] MEDS: MIDAZOLAM HCL 100 MG in SODIUM CHLORIDE 0.9% 80 ML IV PRN ×3 (04:38→22:11)
[2020-10-20] MEDS: FENTANYL CITRATE/PF 2,500 MCG in SODIUM CHLORIDE 0.9% 200 ML IV PRN ×3 (04:59→19:43)
[2020-10-20] MEDS: PROPOFOL 10MG/ML 100ML 100 ML IV PRN ×6 (05:00→23:03)
[2020-10-20] MEDS: ENOXAPARIN 30MG/0.3ML SYR SUBCUT SCH ×2 (05:00→17:52)
[2020-10-20] MEDS: METHYLPREDNISOLONE SOD SUCC 125 MG/2 ML VIAL IV SCH ×3 (05:00→21:06)
[2020-10-20 05:45] LABS: HEMATOCRIT. 35.1 % (42.0-52.0); HEMOGLOBIN. 11.9 g/dL (14.0-18.0); MEAN CORPUSCULAR HEMOGLOBIN 31.1 pg (28.0-32.0); MEAN CORPUSCULAR VOLUME 91.5 fL (80.0-94.0); MEAN PLATELET VOLUME 8.5 fl (7.4-10.4); PLATELET 192 x1000/uL (130-400); RED BLOOD CELL COUNT 3.84 mill/uL (4.7-6.1); RED CELL DISTRIBUTION WIDTH 14.2 % (11.6-14.6)
[2020-10-20 05:52] LABS: CHLORIDE 107 mEq/L (98-107)
[2020-10-20 09:05] LABS: BG BASE EXCESS -0.4 mmol/L (-2.0-2.0); BG CARBOXYHEMOGLOBIN 0.7 % (0.5-1.5); BG DEOXYHEMOGLOBIN 4.4 % (0.0-5.0); BG FRACTION INSPIRED OXYGEN 70; BG HCO3 ACT 26.3 mmol/L (22.0-26.0); BG OXYGEN SATURATION 95.6 % (92.0-98.5); BG OXYHEMOGLOBIN 94.9 % (94.0-97.0); BG PCO2 51.7 mmHg (35.0-45.0); BG PH 7.324 (7.350-7.450); BG SAMPLE SITE RIGHT RADIAL; BG TOTAL HEMOGLOBIN 12.5 g/dL (12.0-18.0); BG TOTAL RESPIRATORY RATE 41 b/min; BG VENT MODE VENT-PRVC
[2020-10-20] MEDS: FAMOTIDINE 20MG TABLET PO SCH ×2 (09:49→21:06)
[2020-10-20] MEDS: ZINC SULFATE 220 MG ( 50 ) CAPSULE PO SCH (09:49)
[2020-10-20] MEDS: DOCUSATE SODIUM 100MG CAPSULE PO PRN (09:49)
[2020-10-20] MEDS: ASCORBIC ACID 500 MG TABLET PO SCH ×2 (09:49→21:06)
[2020-10-20] MEDS: CHOLECALCIFEROL (D3) 1000 UNIT TABLET PO SCH (09:52)
[2020-10-20] MEDS ORDERED: SODIUM POLYSTYRENE SULFONATE 15 G/60 ML BOT PO NR (12:00)
[2020-10-20] MEDS: METOCLOPRAMIDE HCL 10MG/2ML VIAL IV SCH ×3 (12:23→23:02)
[2020-10-20 13:27] LABS: PLATELET ESTIMATE NORMAL
[2020-10-21] VITALS (96 sets, daily range): BP systolic 88–126; BP diastolic 51–75
[2020-10-21] MEDS: PROPOFOL 10MG/ML 100ML 100 ML IV PRN ×7 (01:46→23:07)
[2020-10-21] MEDS: FENTANYL CITRATE/PF 2,500 MCG in SODIUM CHLORIDE 0.9% 200 ML IV PRN ×3 (02:14→17:56)
[2020-10-21] MEDS: IPRATROPIUM/ALBUTEROL 0.5-3(2.5)MG/3ML NEB HHN SCH ×4 (03:13→20:20)
[2020-10-21] MEDS: METHYLPREDNISOLONE SOD SUCC 125 MG/2 ML VIAL IV SCH ×3 (05:00→21:37)
[2020-10-21] MEDS: ENOXAPARIN 30MG/0.3ML SYR SUBCUT SCH ×2 (05:00→17:56)
[2020-10-21] MEDS: METOCLOPRAMIDE HCL 10MG/2ML VIAL IV SCH ×4 (05:00→23:06)
[2020-10-21 05:26] LABS: HEMATOCRIT. 35.8 % (42.0-52.0); HEMOGLOBIN. 12.1 g/dL (14.0-18.0); MEAN CORPUSCULAR HEMOGLOBIN 31.1 pg (28.0-32.0); MEAN CORPUSCULAR VOLUME 91.7 fL (80.0-94.0); MEAN PLATELET VOLUME 8.7 fl (7.4-10.4); PLATELET 156 x1000/uL (130-400); RED CELL DISTRIBUTION WIDTH 14.1 % (11.6-14.6)
[2020-10-21 05:28] LABS: CHLORIDE 108 mEq/L (98-107)
[2020-10-21] MEDS: MIDAZOLAM HCL 100 MG in SODIUM CHLORIDE 0.9% 80 ML IV PRN ×3 (05:41→17:56)
[2020-10-21 08:12] LABS: BG BASE EXCESS 1.6 mmol/L (-2.0-2.0); BG DEOXYHEMOGLOBIN 4.6 % (0.0-5.0); BG METHEMOGLOBIN 0.3 % (0.0-1.5); BG OXYGEN SATURATION 95.4 % (92.0-98.5); BG OXYHEMOGLOBIN 95.1 % (94.0-97.0); BG PCO2 66.7 mmHg (35.0-45.0); BG PH 7.271 (7.350-7.450); BG PO2 86.9 mmHg (75.0-100.0); BG SAMPLE SITE LEFT RADIAL; BG TOTAL HEMOGLOBIN 12.3 g/dL (12.0-18.0); BG VENT MODE VENT - P/C
[2020-10-21] MEDS: ASCORBIC ACID 500 MG TABLET PO SCH ×2 (09:32→21:37)
[2020-10-21] MEDS: CHOLECALCIFEROL (D3) 1000 UNIT TABLET PO SCH (09:33)
[2020-10-21] MEDS: ZINC SULFATE 220 MG ( 50 ) CAPSULE PO SCH (09:33)
[2020-10-21] MEDS: FAMOTIDINE 20MG TABLET PO SCH ×2 (09:33→21:37)
[2020-10-21 13:48] LABS: PLATELET ESTIMATE NORMAL
[2020-10-21] MEDS: DEXT 5%/0.45% NACL 1000ML 1,000 ML IV SCH (18:54)
[2020-10-22] VITALS (95 sets, daily range): BP systolic 92–125; BP diastolic 52–72
[2020-10-22] MEDS: FENTANYL CITRATE/PF 2,500 MCG in SODIUM CHLORIDE 0.9% 200 ML IV PRN ×4 (01:01→23:56)
[2020-10-22] MEDS: MIDAZOLAM HCL 100 MG in SODIUM CHLORIDE 0.9% 80 ML IV PRN ×4 (01:01→22:07)
[2020-10-22] MEDS: PROPOFOL 10MG/ML 100ML 100 ML IV PRN ×8 (02:12→21:17)
[2020-10-22] MEDS: IPRATROPIUM/ALBUTEROL 0.5-3(2.5)MG/3ML NEB HHN SCH ×5 (02:16→20:27)
[2020-10-22] MEDS: METOCLOPRAMIDE HCL 10MG/2ML VIAL IV SCH ×4 (05:08→23:26)
[2020-10-22] MEDS: ENOXAPARIN 30MG/0.3ML SYR SUBCUT SCH ×2 (05:09→17:07)
[2020-10-22] MEDS: METHYLPREDNISOLONE SOD SUCC 125 MG/2 ML VIAL IV SCH ×3 (05:09→21:04)
[2020-10-22 05:43] LABS: HEMATOCRIT. 34.8 % (42.0-52.0); HEMOGLOBIN. 11.8 g/dL (14.0-18.0); MEAN CORPUSCULAR HEMOGLOBIN 31.1 pg (28.0-32.0); MEAN CORPUSCULAR VOLUME 91.2 fL (80.0-94.0); MEAN PLATELET VOLUME 8.4 fl (7.4-10.4); PLATELET 151 x1000/uL (130-400); RED BLOOD CELL COUNT 3.81 mill/uL (4.7-6.1)
[2020-10-22 06:03] LABS: CHLORIDE 105 mEq/L (98-107)
[2020-10-22 08:23] LABS: PLATELET ESTIMATE NORMAL
[2020-10-22 09:11] LABS: BG BASE EXCESS 4.4 mmol/L (-2.0-2.0); BG CARBOXYHEMOGLOBIN 0.2 % (0.5-1.5); BG DEOXYHEMOGLOBIN 4.7 % (0.0-5.0); BG FRACTION INSPIRED OXYGEN 65; BG HCO3 ACT 31.2 mmol/L (22.0-26.0); BG METHEMOGLOBIN 0.5 % (0.0-1.5); BG OXYGEN SATURATION 95.3 % (92.0-98.5); BG OXYHEMOGLOBIN 94.6 % (94.0-97.0); BG PCO2 57.1 mmHg (35.0-45.0); BG PH 7.356 (7.350-7.450); BG PO2 84.5 mmHg (75.0-100.0); BG SAMPLE SITE RIGHT RADIAL; BG TOTAL HEMOGLOBIN 12.3 g/dL (12.0-18.0); BG VENT MODE VENT - P/C
[2020-10-22] MEDS: CHOLECALCIFEROL (D3) 1000 UNIT TABLET PO SCH (09:12)
[2020-10-22] MEDS: ZINC SULFATE 220 MG ( 50 ) CAPSULE PO SCH (09:12)
[2020-10-22] MEDS: ASCORBIC ACID 500 MG TABLET PO SCH ×2 (09:12→20:55)
[2020-10-22] MEDS: FAMOTIDINE 20MG TABLET PO SCH ×2 (09:12→20:55)
[2020-10-22] MEDS: DEXT 5%/0.45% NACL 1000ML 1,000 ML IV SCH (13:10)
[2020-10-22] MEDS ORDERED: HYDRALAZINE HCL 50MG TABLET PO SCH (16:00)
[2020-10-23] VITALS (90 sets, daily range): BP systolic 87–124; BP diastolic 50–75
[2020-10-23] MEDS: PROPOFOL 10MG/ML 100ML 100 ML IV PRN ×8 (00:22→21:32)
[2020-10-23] MEDS: IPRATROPIUM/ALBUTEROL 0.5-3(2.5)MG/3ML NEB HHN SCH ×4 (02:12→21:07)
[2020-10-23] MEDS: METHYLPREDNISOLONE SOD SUCC 125 MG/2 ML VIAL IV SCH ×3 (05:17→21:22)
[2020-10-23] MEDS: METOCLOPRAMIDE HCL 10MG/2ML VIAL IV SCH ×4 (05:17→23:49)
[2020-10-23] MEDS: ENOXAPARIN 30MG/0.3ML SYR SUBCUT SCH ×2 (05:17→17:50)
[2020-10-23] MEDS: ACETAMINOPHEN 325MG TABLET PO PRN (05:17)
[2020-10-23 05:27] LABS: HEMATOCRIT. 33.8 % (42.0-52.0); HEMOGLOBIN. 11.5 g/dL (14.0-18.0); MEAN CORPUSCULAR HEMOGLOBIN 31.4 pg (28.0-32.0); MEAN CORPUSCULAR VOLUME 92.3 fL (80.0-94.0); MEAN PLATELET VOLUME 8.4 fl (7.4-10.4); PLATELET 135 x1000/uL (130-400); RED BLOOD CELL COUNT 3.67 mill/uL (4.7-6.1); RED CELL DISTRIBUTION WIDTH 14.8 % (11.6-14.6)
[2020-10-23 05:35] LABS: CHLORIDE 107 mEq/L (98-107)
[2020-10-23] MEDS: MIDAZOLAM HCL 100 MG in SODIUM CHLORIDE 0.9% 80 ML IV PRN ×3 (05:58→20:39)
[2020-10-23] MEDS: FENTANYL CITRATE/PF 2,500 MCG in SODIUM CHLORIDE 0.9% 200 ML IV PRN ×3 (07:10→22:01)
[2020-10-23 07:32] LABS: PLATELET ESTIMATE NORMAL
[2020-10-23 09:04] LABS: BG BASE EXCESS 6.1 mmol/L (-2.0-2.0); BG CARBOXYHEMOGLOBIN 0.7 % (0.5-1.5); BG DEOXYHEMOGLOBIN 4.5 % (0.0-5.0); BG FRACTION INSPIRED OXYGEN 65; BG HCO3 ACT 32.7 mmol/L (22.0-26.0); BG METHEMOGLOBIN 0.3 % (0.0-1.5); BG OXYGEN SATURATION 95.5 % (92.0-98.5); BG OXYHEMOGLOBIN 94.5 % (94.0-97.0); BG PCO2 56.6 mmHg (35.0-45.0); BG PO2 81.1 mmHg (75.0-100.0); BG SAMPLE SITE RIGHT RADIAL; BG TOTAL HEMOGLOBIN 12.5 g/dL (12.0-18.0); BG TOTAL RESPIRATORY RATE 43 b/min; BG VENT MODE VENT - P/C
[2020-10-23] MEDS: DEXT 5%/0.45% NACL 1000ML 1,000 ML IV SCH (09:09)
[2020-10-23] MEDS: ASCORBIC ACID 500 MG TABLET PO SCH ×2 (09:25→21:22)
[2020-10-23] MEDS: FAMOTIDINE 20MG TABLET PO SCH ×2 (09:25→21:22)
[2020-10-23] MEDS: ZINC SULFATE 220 MG ( 50 ) CAPSULE PO SCH (09:25)
[2020-10-23] MEDS: CHOLECALCIFEROL (D3) 1000 UNIT TABLET PO SCH (09:25)
[2020-10-24] VITALS (93 sets, daily range): BP systolic 89–167; BP diastolic 54–91
[2020-10-24] MEDS: PROPOFOL 10MG/ML 100ML 100 ML IV PRN ×7 (00:43→22:25)
[2020-10-24] MEDS: IPRATROPIUM/ALBUTEROL 0.5-3(2.5)MG/3ML NEB HHN SCH ×4 (00:45→20:54)
[2020-10-24] MEDS: MIDAZOLAM HCL 100 MG in SODIUM CHLORIDE 0.9% 80 ML IV PRN ×3 (03:45→17:27)
[2020-10-24 04:44] LABS: HEMATOCRIT. 34.3 % (42.0-52.0); HEMOGLOBIN. 11.7 g/dL (14.0-18.0); MEAN CORPUSCULAR VOLUME 91.3 fL (80.0-94.0); RED BLOOD CELL COUNT 3.76 mill/uL (4.7-6.1); RED CELL DISTRIBUTION WIDTH 14.3 % (11.6-14.6)
[2020-10-24 04:45] LABS: CHLORIDE 104 mEq/L (98-107)
[2020-10-24] MEDS: ENOXAPARIN 30MG/0.3ML SYR SUBCUT SCH ×2 (05:18→18:00)
[2020-10-24] MEDS: DEXT 5%/0.45% NACL 1000ML 1,000 ML IV SCH (05:18)
[2020-10-24] MEDS: METOCLOPRAMIDE HCL 10MG/2ML VIAL IV SCH ×4 (05:18→23:42)
[2020-10-24] MEDS: METHYLPREDNISOLONE SOD SUCC 125 MG/2 ML VIAL IV SCH ×3 (05:18→21:35)
[2020-10-24] MEDS: FENTANYL CITRATE/PF 2,500 MCG in SODIUM CHLORIDE 0.9% 200 ML IV PRN ×3 (06:02→20:55)
[2020-10-24 08:16] LABS: BG BASE EXCESS 6.1 mmol/L (-2.0-2.0); BG CARBOXYHEMOGLOBIN 0.3 % (0.5-1.5); BG DEOXYHEMOGLOBIN 5.2 % (0.0-5.0); BG HCO3 ACT 32.7 mmol/L (22.0-26.0); BG METHEMOGLOBIN 0.2 % (0.0-1.5); BG OXYGEN SATURATION 94.8 % (92.0-98.5); BG OXYHEMOGLOBIN 94.3 % (94.0-97.0); BG PCO2 57.4 mmHg (35.0-45.0); BG PH 7.374 (7.350-7.450); BG PO2 81.3 mmHg (75.0-100.0); BG SAMPLE SITE LEFT RADIAL; BG TOTAL HEMOGLOBIN 11.9 g/dL (12.0-18.0); BG VENT MODE VENT - P/C
[2020-10-24] MEDS: ZINC SULFATE 220 MG ( 50 ) CAPSULE PO SCH (09:12)
[2020-10-24] MEDS: CHOLECALCIFEROL (D3) 1000 UNIT TABLET PO SCH (09:12)
[2020-10-24] MEDS: ASCORBIC ACID 500 MG TABLET PO SCH ×2 (09:12→21:35)
[2020-10-24] MEDS: FAMOTIDINE 20MG TABLET PO SCH ×2 (09:13→21:35)
[2020-10-24 15:27] LABS: BG BASE EXCESS 6.5 mmol/L (-2.0-2.0); BG CARBOXYHEMOGLOBIN 0.7 % (0.5-1.5); BG DEOXYHEMOGLOBIN 7.8 % (0.0-5.0); BG FRACTION INSPIRED OXYGEN 65; BG HCO3 ACT 31.7 mmol/L (22.0-26.0); BG METHEMOGLOBIN 0.4 % (0.0-1.5); BG OXYGEN SATURATION 92.1 % (92.0-98.5); BG OXYHEMOGLOBIN 91.1 % (94.0-97.0); BG PCO2 47.7 mmHg (35.0-45.0); BG PO2 62.3 mmHg (75.0-100.0); BG SAMPLE SITE LEFT RADIAL; BG TOTAL HEMOGLOBIN 13.3 g/dL (12.0-18.0); BG TOTAL RESPIRATORY RATE 37 b/min; BG VENT MODE VENT- PRVC
[2020-10-24] MEDS: ACETAMINOPHEN 325MG TABLET PO PRN (18:00)
[2020-10-25] VITALS (97 sets, daily range): BP systolic 89–135; BP diastolic 49–79
[2020-10-25] MEDS: MIDAZOLAM HCL 100 MG in SODIUM CHLORIDE 0.9% 80 ML IV PRN ×4 (00:25→22:43)
[2020-10-25] MEDS: IPRATROPIUM/ALBUTEROL 0.5-3(2.5)MG/3ML NEB HHN SCH ×4 (00:44→20:58)
[2020-10-25] MEDS: PROPOFOL 10MG/ML 100ML 100 ML IV PRN ×8 (01:02→22:19)
[2020-10-25] MEDS: DEXT 5%/0.45% NACL 1000ML 1,000 ML IV SCH ×2 (02:24→21:01)
[2020-10-25] MEDS: FENTANYL CITRATE/PF 2,500 MCG in SODIUM CHLORIDE 0.9% 200 ML IV PRN ×3 (04:41→19:26)
[2020-10-25] MEDS: METHYLPREDNISOLONE SOD SUCC 125 MG/2 ML VIAL IV SCH ×3 (05:48→21:01)
[2020-10-25] MEDS: METOCLOPRAMIDE HCL 10MG/2ML VIAL IV SCH ×4 (05:48→23:46)
[2020-10-25] MEDS: ENOXAPARIN 30MG/0.3ML SYR SUBCUT SCH ×2 (06:15→17:17)
[2020-10-25 06:25] LABS: CHLORIDE 106 mEq/L (98-107)
[2020-10-25] MEDS: DOCUSATE SODIUM 100MG CAPSULE PO PRN (06:41)
[2020-10-25] MEDS: CHOLECALCIFEROL (D3) 1000 UNIT TABLET PO SCH (08:09)
[2020-10-25] MEDS: FAMOTIDINE 20MG TABLET PO SCH ×2 (08:09→20:35)
[2020-10-25] MEDS: ZINC SULFATE 220 MG ( 50 ) CAPSULE PO SCH (08:09)
[2020-10-25] MEDS: ASCORBIC ACID 500 MG TABLET PO SCH ×2 (08:09→20:35)
[2020-10-25 09:25] LABS: BG BASE EXCESS 6.6 mmol/L (-2.0-2.0); BG CARBOXYHEMOGLOBIN 0.8 % (0.5-1.5); BG FRACTION INSPIRED OXYGEN 55; BG HCO3 ACT 32.2 mmol/L (22.0-26.0); BG METHEMOGLOBIN 0.1 % (0.0-1.5); BG OXYGEN SATURATION 91.9 % (92.0-98.5); BG OXYHEMOGLOBIN 91.1 % (94.0-97.0); BG PCO2 50.8 mmHg (35.0-45.0); BG PO2 64.4 mmHg (75.0-100.0); BG SAMPLE SITE LEFT RADIAL; BG TOTAL HEMOGLOBIN 11.9 g/dL (12.0-18.0); BG VENT MODE PRVC-AC
[2020-10-25 09:36] LABS: HEMATOCRIT. 33.5 % (42.0-52.0); HEMOGLOBIN. 11.3 g/dL (14.0-18.0); MEAN CORPUSCULAR VOLUME 91.6 fL (80.0-94.0); PLATELET 125 x1000/uL (130-400); RED BLOOD CELL COUNT 3.66 mill/uL (4.7-6.1); RED CELL DISTRIBUTION WIDTH 14.3 % (11.6-14.6)
[2020-10-25 10:31] LABS: PLATELET ESTIMATE SLIGHTLY DECREASED
[2020-10-25] MEDS: LACTULOSE 20G/30ML UDC PO SCH ×2 (13:46→21:00)
[2020-10-26] VITALS (96 sets, daily range): BP systolic 90–140; BP diastolic 60–93
[2020-10-26] MEDS: PROPOFOL 10MG/ML 100ML 100 ML IV PRN ×10 (00:27→23:18)
[2020-10-26] MEDS: IPRATROPIUM/ALBUTEROL 0.5-3(2.5)MG/3ML NEB HHN SCH ×4 (01:10→20:59)
[2020-10-26] MEDS: FENTANYL CITRATE/PF 2,500 MCG in SODIUM CHLORIDE 0.9% 200 ML IV PRN ×3 (03:12→18:57)
[2020-10-26] MEDS: MIDAZOLAM HCL 100 MG in SODIUM CHLORIDE 0.9% 80 ML IV PRN ×3 (05:31→22:00)
[2020-10-26] MEDS: ENOXAPARIN 30MG/0.3ML SYR SUBCUT SCH (05:45)
[2020-10-26] MEDS: METOCLOPRAMIDE HCL 10MG/2ML VIAL IV SCH ×4 (05:45→23:52)
[2020-10-26] MEDS: METHYLPREDNISOLONE SOD SUCC 125 MG/2 ML VIAL IV SCH ×3 (05:45→23:09)
[2020-10-26] MEDS: LACTULOSE 20G/30ML UDC PO SCH (05:45)
[2020-10-26 06:00] LABS: HEMATOCRIT. 30.7 % (42.0-52.0); HEMOGLOBIN. 10.6 g/dL (14.0-18.0); MEAN CORPUSCULAR HEMOGLOBIN 31.4 pg (28.0-32.0); MEAN CORPUSCULAR VOLUME 90.7 fL (80.0-94.0); MEAN PLATELET VOLUME 8.3 fl (7.4-10.4); PLATELET 121 x1000/uL (130-400); RED BLOOD CELL COUNT 3.39 mill/uL (4.7-6.1); RED CELL DISTRIBUTION WIDTH 14.5 % (11.6-14.6)
[2020-10-26 06:12] LABS: CHLORIDE 105 mEq/L (98-107)
[2020-10-26] MEDS: ZINC SULFATE 220 MG ( 50 ) CAPSULE PO SCH (08:01)
[2020-10-26] MEDS: FAMOTIDINE 20MG TABLET PO SCH ×2 (08:01→20:45)
[2020-10-26] MEDS: ASCORBIC ACID 500 MG TABLET PO SCH ×2 (08:01→20:46)
[2020-10-26] MEDS: CHOLECALCIFEROL (D3) 1000 UNIT TABLET PO SCH (08:01)
[2020-10-26 08:44] LABS: BG BASE EXCESS 4.9 mmol/L (-2.0-2.0); BG CARBOXYHEMOGLOBIN 0.2 % (0.5-1.5); BG DEOXYHEMOGLOBIN 7.9 % (0.0-5.0); BG HCO3 ACT 30.6 mmol/L (22.0-26.0); BG METHEMOGLOBIN 0.3 % (0.0-1.5); BG OXYGEN SATURATION 92.1 % (92.0-98.5); BG OXYHEMOGLOBIN 91.6 % (94.0-97.0); BG PCO2 50.3 mmHg (35.0-45.0); BG PH 7.402 (7.350-7.450); BG PO2 64.5 mmHg (75.0-100.0); BG SAMPLE SITE RIGHT RADIAL; BG TOTAL HEMOGLOBIN 11.1 g/dL (12.0-18.0); BG VENT MODE VENT- PRVC
[2020-10-26] MEDS: ENOXAPARIN 40MG/0.4ML SYR SUBCUT SCH (17:54)
[2020-10-26] MEDS: DEXT 5%/0.45% NACL 1000ML 1,000 ML IV SCH (17:55)
[2020-10-26 21:32] LABS: PLATELET ESTIMATE SLIGHTLY DECREASED
[2020-10-27] VITALS (94 sets, daily range): BP systolic 84–142; BP diastolic 43–91
[2020-10-27] MEDS: PROPOFOL 10MG/ML 100ML 100 ML IV PRN ×9 (01:20→23:10)
[2020-10-27] MEDS: FENTANYL CITRATE/PF 2,500 MCG in SODIUM CHLORIDE 0.9% 200 ML IV PRN ×3 (02:15→17:20)
[2020-10-27] MEDS: IPRATROPIUM/ALBUTEROL 0.5-3(2.5)MG/3ML NEB HHN SCH ×4 (03:23→20:53)
[2020-10-27] MEDS: METOCLOPRAMIDE HCL 10MG/2ML VIAL IV SCH ×4 (05:35→22:58)
[2020-10-27] MEDS: METHYLPREDNISOLONE SOD SUCC 125 MG/2 ML VIAL IV SCH ×3 (05:40→22:57)
[2020-10-27] MEDS: ENOXAPARIN 40MG/0.4ML SYR SUBCUT SCH ×2 (05:44→17:51)
[2020-10-27 05:53] LABS: CHLORIDE 108 mEq/L (98-107)
[2020-10-27] MEDS: FAMOTIDINE 20MG TABLET PO SCH ×2 (08:05→20:29)
[2020-10-27] MEDS: ZINC SULFATE 220 MG ( 50 ) CAPSULE PO SCH (08:05)
[2020-10-27] MEDS: CHOLECALCIFEROL (D3) 1000 UNIT TABLET PO SCH (08:05)
[2020-10-27] MEDS: ASCORBIC ACID 500 MG TABLET PO SCH ×2 (08:05→20:29)
[2020-10-27] MEDS: MIDAZOLAM HCL 100 MG in SODIUM CHLORIDE 0.9% 80 ML IV PRN ×2 (08:44→18:42)
[2020-10-27 09:41] LABS: BG CARBOXYHEMOGLOBIN 0.7 % (0.5-1.5); BG DEOXYHEMOGLOBIN 1.4 % (0.0-5.0); BG FRACTION INSPIRED OXYGEN 65; BG HCO3 ACT 32.6 mmol/L (22.0-26.0); BG METHEMOGLOBIN 0.2 % (0.0-1.5); BG OXYGEN SATURATION 98.6 % (92.0-98.5); BG OXYHEMOGLOBIN 97.7 % (94.0-97.0); BG PCO2 50.9 mmHg (35.0-45.0); BG PH 7.424 (7.350-7.450); BG PO2 143.9 mmHg (75.0-100.0); BG SAMPLE SITE LEFT RADIAL; BG TOTAL HEMOGLOBIN 11.8 g/dL (12.0-18.0); BG VENT MODE VENT - P/C
[2020-10-27] MEDS: DEXT 5%/0.45% NACL 1000ML 1,000 ML IV SCH (13:56)
[2020-10-27] MEDS: PHENYLEPHRINE 100 MG in DEXT 5% WATER 240 ML IV PRN (20:29)
[2020-10-28] VITALS (91 sets, daily range): BP systolic 103–170; BP diastolic 64–111
[2020-10-28] MEDS: FENTANYL CITRATE/PF 2,500 MCG in SODIUM CHLORIDE 0.9% 200 ML IV PRN ×4 (00:55→23:39)
[2020-10-28] MEDS: PROPOFOL 10MG/ML 100ML 100 ML IV PRN ×9 (04:30→23:54)
[2020-10-28] MEDS: MIDAZOLAM HCL 100 MG in SODIUM CHLORIDE 0.9% 80 ML IV PRN ×3 (04:48→23:40)
[2020-10-28] MEDS: IPRATROPIUM/ALBUTEROL 0.5-3(2.5)MG/3ML NEB HHN SCH ×4 (04:54→20:47)
[2020-10-28] MEDS: METOCLOPRAMIDE HCL 10MG/2ML VIAL IV SCH ×3 (05:40→17:50)
[2020-10-28] MEDS: ENOXAPARIN 40MG/0.4ML SYR SUBCUT SCH ×2 (05:41→17:50)
[2020-10-28] MEDS: METHYLPREDNISOLONE SOD SUCC 125 MG/2 ML VIAL IV SCH ×3 (05:41→21:07)
[2020-10-28 06:13] LABS: HEMATOCRIT. 32.6 % (42.0-52.0); HEMOGLOBIN. 11.1 g/dL (14.0-18.0); MEAN CORPUSCULAR HEMOGLOBIN 30.9 pg (28.0-32.0); MEAN PLATELET VOLUME 7.6 fl (7.4-10.4); PLATELET 141 x1000/uL (130-400); RED BLOOD CELL COUNT 3.59 mill/uL (4.7-6.1); RED CELL DISTRIBUTION WIDTH 14.6 % (11.6-14.6)
[2020-10-28] MEDS: ASCORBIC ACID 500 MG TABLET PO SCH ×2 (08:08→21:07)
[2020-10-28] MEDS: CHOLECALCIFEROL (D3) 1000 UNIT TABLET PO SCH (08:08)
[2020-10-28] MEDS: FAMOTIDINE 20MG TABLET PO SCH ×2 (08:08→21:07)
[2020-10-28] MEDS: ZINC SULFATE 220 MG ( 50 ) CAPSULE PO SCH (08:10)
[2020-10-28 09:37] LABS: BG BASE EXCESS 7.2 mmol/L (-2.0-2.0); BG CARBOXYHEMOGLOBIN 1.5 % (0.5-1.5); BG FRACTION INSPIRED OXYGEN 55; BG HCO3 ACT 32.6 mmol/L (22.0-26.0); BG METHEMOGLOBIN 0.2 % (0.0-1.5); BG OXYGEN SATURATION 89.8 % (92.0-98.5); BG OXYHEMOGLOBIN 88.3 % (94.0-97.0); BG PCO2 48.7 mmHg (35.0-45.0); BG PH 7.443 (7.350-7.450); BG PO2 58.1 mmHg (75.0-100.0); BG SAMPLE SITE RIGHT RADIAL; BG TOTAL HEMOGLOBIN 13.7 g/dL (12.0-18.0); BG VENT MODE VENT - P/C
[2020-10-28] MEDS: DEXT 5%/0.45% NACL 1000ML 1,000 ML IV SCH (10:56)
[2020-10-28] MEDS: BISACODYL 10MG SUPP PR PRN (11:23)
[2020-10-28 13:07] LABS: CHLORIDE 103 mEq/L (98-107)
[2020-10-28 13:19] LABS: PLATELET ESTIMATE NORMAL
[2020-10-29] VITALS (91 sets, daily range): BP systolic 86–155; BP diastolic 51–93
[2020-10-29] MEDS: IPRATROPIUM/ALBUTEROL 0.5-3(2.5)MG/3ML NEB HHN SCH ×4 (01:25→20:14)
[2020-10-29] MEDS: METOCLOPRAMIDE HCL 10MG/2ML VIAL IV SCH ×5 (02:30→23:15)
[2020-10-29] MEDS: PROPOFOL 10MG/ML 100ML 100 ML IV PRN ×8 (02:31→22:46)
[2020-10-29] MEDS: METHYLPREDNISOLONE SOD SUCC 125 MG/2 ML VIAL IV SCH ×3 (06:19→21:30)
[2020-10-29] MEDS: ENOXAPARIN 40MG/0.4ML SYR SUBCUT SCH ×2 (06:20→17:38)
[2020-10-29] MEDS: FENTANYL CITRATE/PF 2,500 MCG in SODIUM CHLORIDE 0.9% 200 ML IV PRN ×2 (07:16→15:52)
[2020-10-29] MEDS: MIDAZOLAM HCL 100 MG in SODIUM CHLORIDE 0.9% 80 ML IV PRN ×2 (07:59→15:51)
[2020-10-29] MEDS ORDERED: ACETAMINOPHEN 650MG SUPP PR PRN (08:00)
[2020-10-29] MEDS: DEXT 5%/0.45% NACL 1000ML 1,000 ML IV SCH (08:00)
[2020-10-29] MEDS: CHOLECALCIFEROL (D3) 1000 UNIT TABLET PO SCH (08:09)
[2020-10-29] MEDS: ZINC SULFATE 220 MG ( 50 ) CAPSULE PO SCH (08:09)
[2020-10-29 08:17] LABS: BG BASE EXCESS 6.2 mmol/L (-2.0-2.0); BG CARBOXYHEMOGLOBIN 0.9 % (0.5-1.5); BG DEOXYHEMOGLOBIN 4.7 % (0.0-5.0); BG HCO3 ACT 31.8 mmol/L (22.0-26.0); BG METHEMOGLOBIN 0.1 % (0.0-1.5); BG OXYGEN SATURATION 95.3 % (92.0-98.5); BG OXYHEMOGLOBIN 94.3 % (94.0-97.0); BG PCO2 49.9 mmHg (35.0-45.0); BG PH 7.422 (7.350-7.450); BG PO2 79.9 mmHg (75.0-100.0); BG SAMPLE SITE LEFT RADIAL; BG TOTAL HEMOGLOBIN 12.8 g/dL (12.0-18.0); BG VENT MODE VENT - P/C
[2020-10-29] MEDS ORDERED: PROPOFOL 10MG/ML 100ML 100 ML IV PRN (13:00)
[2020-10-29] MEDS: CEFEPIME 2,000 MG in DEXT 5% WATER 100 ML IV SCH (15:11)
[2020-10-30] VITALS (94 sets, daily range): BP systolic 90–154; BP diastolic 54–96
[2020-10-30] MEDS: MIDAZOLAM HCL 100 MG in SODIUM CHLORIDE 0.9% 80 ML IV PRN ×3 (00:31→14:03)
[2020-10-30] MEDS: PROPOFOL 10MG/ML 100ML 100 ML IV PRN ×9 (01:43→23:32)
[2020-10-30] MEDS: CEFEPIME 2,000 MG in DEXT 5% WATER 100 ML IV SCH ×2 (02:12→13:22)
[2020-10-30] MEDS: IPRATROPIUM/ALBUTEROL 0.5-3(2.5)MG/3ML NEB HHN SCH ×4 (02:18→20:28)
[2020-10-30] MEDS: DEXT 5%/0.45% NACL 1000ML 1,000 ML IV SCH (03:05)
[2020-10-30] MEDS: METHYLPREDNISOLONE SOD SUCC 125 MG/2 ML VIAL IV SCH ×3 (05:01→21:50)
[2020-10-30] MEDS: METOCLOPRAMIDE HCL 10MG/2ML VIAL IV SCH ×3 (05:01→17:22)
[2020-10-30] MEDS: ENOXAPARIN 40MG/0.4ML SYR SUBCUT SCH ×2 (05:01→17:22)
[2020-10-30] MEDS ORDERED: LIDOCAINE HCL/EPINEPHRINE 1%-EPI 1:100,000 10 ML VIAL ONE (05:56)
[2020-10-30] MEDS: FENTANYL CITRATE/PF 2,500 MCG in SODIUM CHLORIDE 0.9% 200 ML IV PRN (08:30)
[2020-10-30 11:32] LABS: BG BASE EXCESS 4.7 mmol/L (-2.0-2.0); BG CARBOXYHEMOGLOBIN 0.3 % (0.5-1.5); BG FRACTION INSPIRED OXYGEN 100; BG HCO3 ACT 30.6 mmol/L (22.0-26.0); BG METHEMOGLOBIN 0.3 % (0.0-1.5); BG OXYHEMOGLOBIN 97.4 % (94.0-97.0); BG PCO2 52.1 mmHg (35.0-45.0); BG PH 7.387 (7.350-7.450); BG SAMPLE SITE LEFT RADIAL; BG TOTAL HEMOGLOBIN 10.8 g/dL (12.0-18.0); BG VENT MODE VENT - P/C
[2020-10-30] MEDS ORDERED: VANCOMYCIN 2,000 MG in DEXT 5% WATER 500 ML IV NR (14:30)
[2020-10-30] MEDS: LACTULOSE 20G/30ML UDC PO PRN (21:50)
[2020-10-30] MEDS ORDERED: VANCOMYCIN 1250MG in DEXTROSE 5% WATER 250ML IV SCH (22:30)
[2020-10-31] VITALS (92 sets, daily range): BP systolic 96–159; BP diastolic 57–101
[2020-10-31] MEDS: DEXT 5%/0.45% NACL 1000ML 1,000 ML IV SCH ×2 (00:05→18:33)
[2020-10-31] MEDS: METOCLOPRAMIDE HCL 10MG/2ML VIAL IV SCH ×4 (00:14→18:33)
[2020-10-31] MEDS: IPRATROPIUM/ALBUTEROL 0.5-3(2.5)MG/3ML NEB HHN SCH ×4 (00:37→21:12)
[2020-10-31] MEDS: MIDAZOLAM HCL 100 MG in SODIUM CHLORIDE 0.9% 80 ML IV PRN ×3 (01:43→15:32)
[2020-10-31] MEDS: CEFEPIME 2,000 MG in DEXT 5% WATER 100 ML IV SCH ×2 (02:21→15:32)
[2020-10-31] MEDS: PROPOFOL 10MG/ML 100ML 100 ML IV PRN ×7 (02:51→21:07)
[2020-10-31] MEDS: FENTANYL CITRATE/PF 2,500 MCG in SODIUM CHLORIDE 0.9% 200 ML IV PRN ×2 (03:31→15:33)
[2020-10-31 04:56] LABS: HEMATOCRIT. 30.9 % (42.0-52.0); HEMOGLOBIN. 10.5 g/dL (14.0-18.0); MEAN CORPUSCULAR HEMOGLOBIN 30.7 pg (28.0-32.0); MEAN CORPUSCULAR VOLUME 90.7 fL (80.0-94.0); MEAN PLATELET VOLUME 7.7 fl (7.4-10.4); PLATELET 180 x1000/uL (130-400); RED CELL DISTRIBUTION WIDTH 14.1 % (11.6-14.6)
[2020-10-31 05:26] LABS: CHLORIDE 102 mEq/L (98-107)
[2020-10-31] MEDS: ENOXAPARIN 40MG/0.4ML SYR SUBCUT SCH ×2 (05:41→18:33)
[2020-10-31] MEDS: METHYLPREDNISOLONE SOD SUCC 125 MG/2 ML VIAL IV SCH ×3 (05:41→22:09)
[2020-10-31] MEDS: LACTULOSE 20G/30ML UDC PO PRN (05:42)
[2020-10-31 10:56] LABS: BG CARBOXYHEMOGLOBIN 0.8 % (0.5-1.5); BG DEOXYHEMOGLOBIN 3.2 % (0.0-5.0); BG FRACTION INSPIRED OXYGEN 100; BG HCO3 ACT 32.4 mmol/L (22.0-26.0); BG METHEMOGLOBIN 0.2 % (0.0-1.5); BG OXYGEN SATURATION 96.8 % (92.0-98.5); BG OXYHEMOGLOBIN 95.8 % (94.0-97.0); BG PCO2 56.5 mmHg (35.0-45.0); BG PH 7.377 (7.350-7.450); BG PO2 92.4 mmHg (75.0-100.0); BG SAMPLE SITE RIGHT RADIAL; BG TOTAL HEMOGLOBIN 10.9 g/dL (12.0-18.0); BG VENT MODE VENT - P/C
[2020-10-31] MEDS: VANCOMYCIN 1250MG in DEXTROSE 5% WATER 250ML IV SCH ×2 (12:00→22:11)
[2020-10-31] MEDS ORDERED: VANCOMYCIN 1250MG in DEXTROSE 5% WATER 250ML IV SCH (12:00)
[2020-10-31 12:23] LABS: PLATELET ESTIMATE NORMAL
[2020-10-31] MEDS: BISACODYL 10MG SUPP PR PRN (22:09)
[2020-10-31] MEDS ORDERED: IOHEXOL-350 100 ML BOTTLE ONE (22:35)
[2020-11-01] VITALS (97 sets, daily range): BP systolic 105–169; BP diastolic 60–106
[2020-11-01] MEDS: PROPOFOL 10MG/ML 100ML 100 ML IV PRN ×9 (00:03→21:36)
[2020-11-01] MEDS: METOCLOPRAMIDE HCL 10MG/2ML VIAL IV SCH ×4 (00:04→18:09)
[2020-11-01] MEDS: IPRATROPIUM/ALBUTEROL 0.5-3(2.5)MG/3ML NEB HHN SCH ×4 (00:59→20:33)
[2020-11-01] MEDS: CEFEPIME 2,000 MG in DEXT 5% WATER 100 ML IV SCH ×2 (02:20→13:11)
[2020-11-01] MEDS: MIDAZOLAM HCL 100 MG in SODIUM CHLORIDE 0.9% 80 ML IV PRN ×3 (04:41→20:16)
[2020-11-01 05:34] LABS: CHLORIDE 102 mEq/L (98-107)
[2020-11-01] MEDS: ENOXAPARIN 40MG/0.4ML SYR SUBCUT SCH ×2 (06:12→18:10)
[2020-11-01] MEDS: METHYLPREDNISOLONE SOD SUCC 125 MG/2 ML VIAL IV SCH ×3 (06:12→21:57)
[2020-11-01] MEDS: VANCOMYCIN 1250MG in DEXTROSE 5% WATER 250ML IV SCH ×3 (06:12→21:57)
[2020-11-01] MEDS: FENTANYL CITRATE/PF 2,500 MCG in SODIUM CHLORIDE 0.9% 200 ML IV PRN ×3 (07:55→22:58)
[2020-11-01] MEDS ORDERED: SODIUM CHLORIDE 0.9% INJ 10ML FLUSH IVF ONE (07:56)
[2020-11-01] MEDS ORDERED: VECURONIUM BROMIDE 10 MG/VIAL IV ONE (07:56)
[2020-11-01] MEDS ORDERED: AMLODIPINE 5MG TABLET PO SCH (10:00)
[2020-11-01 10:09] LABS: BG BASE EXCESS 5.9 mmol/L (-2.0-2.0); BG CARBOXYHEMOGLOBIN 0.9 % (0.5-1.5); BG DEOXYHEMOGLOBIN 15.1 % (0.0-5.0); BG FRACTION INSPIRED OXYGEN 100; BG HCO3 ACT 33.3 mmol/L (22.0-26.0); BG METHEMOGLOBIN 0.1 % (0.0-1.5); BG OXYGEN SATURATION 84.7 % (92.0-98.5); BG OXYHEMOGLOBIN 83.9 % (94.0-97.0); BG PCO2 62.4 mmHg (35.0-45.0); BG PH 7.345 (7.350-7.450); BG PO2 51.1 mmHg (75.0-100.0); BG SAMPLE SITE RIGHT RADIAL; BG TOTAL HEMOGLOBIN 12.1 g/dL (12.0-18.0); BG TOTAL RESPIRATORY RATE 36 b/min; BG VENT MODE VENT - P/C
[2020-11-01] MEDS: HYDRALAZINE 20MG/ML VIAL IV SCH ×2 (12:00→18:00)
[2020-11-01] MEDS: DEXT 5%/0.45% NACL 1000ML 1,000 ML IV SCH (14:43)
[2020-11-02] VITALS (97 sets, daily range): BP systolic 88–145; BP diastolic 47–94
[2020-11-02] MEDS: PROPOFOL 10MG/ML 100ML 100 ML IV PRN ×10 (00:28→23:43)
[2020-11-02] MEDS: IPRATROPIUM/ALBUTEROL 0.5-3(2.5)MG/3ML NEB HHN SCH ×4 (00:33→20:22)
[2020-11-02] MEDS: METOCLOPRAMIDE HCL 10MG/2ML VIAL IV SCH ×5 (00:33→23:21)
[2020-11-02] MEDS: CEFEPIME 2,000 MG in DEXT 5% WATER 100 ML IV SCH (02:49)
[2020-11-02] MEDS: MIDAZOLAM HCL 100 MG in SODIUM CHLORIDE 0.9% 80 ML IV PRN ×3 (03:20→17:38)
[2020-11-02] MEDS: VANCOMYCIN 1250MG in DEXTROSE 5% WATER 250ML IV SCH (05:48)
[2020-11-02] MEDS: METHYLPREDNISOLONE SOD SUCC 125 MG/2 ML VIAL IV SCH (05:48)
[2020-11-02] MEDS: HYDRALAZINE 20MG/ML VIAL IV SCH ×5 (06:00→23:33)
[2020-11-02] MEDS: ENOXAPARIN 40MG/0.4ML SYR SUBCUT SCH ×2 (06:50→18:06)
[2020-11-02] MEDS: FENTANYL CITRATE/PF 2,500 MCG in SODIUM CHLORIDE 0.9% 200 ML IV PRN ×3 (07:16→21:36)
[2020-11-02] MEDS: AMLODIPINE 5MG TABLET PO SCH (08:14)
[2020-11-02 09:16] LABS: BG BASE EXCESS 10.1 mmol/L (-2.0-2.0); BG CARBOXYHEMOGLOBIN 0.4 % (0.5-1.5); BG DEOXYHEMOGLOBIN 3.1 % (0.0-5.0); BG HCO3 ACT 39.8 mmol/L (22.0-26.0); BG METHEMOGLOBIN 0.2 % (0.0-1.5); BG OXYGEN SATURATION 96.9 % (92.0-98.5); BG OXYHEMOGLOBIN 96.3 % (94.0-97.0); BG PCO2 87.2 mmHg (35.0-45.0); BG PH 7.277 (7.350-7.450); BG SAMPLE SITE RIGHT RADIAL; BG TOTAL HEMOGLOBIN 11.4 g/dL (12.0-18.0); BG TOTAL RESPIRATORY RATE 39 b/min
[2020-11-02] MEDS: DEXT 5%/0.45% NACL 1000ML 1,000 ML IV SCH (09:42)
[2020-11-02] MEDS: METHYLPREDNISOLONE SOD SUCC 40 MG/ML VIAL IV SCH ×2 (10:11→18:06)
[2020-11-02 12:09] LABS: CHLORIDE 105 mEq/L (98-107); HEMATOCRIT. 31.1 % (42.0-52.0); HEMOGLOBIN. 10.6 g/dL (14.0-18.0); MEAN CORPUSCULAR HEMOGLOBIN 31.3 pg (28.0-32.0); MEAN CORPUSCULAR VOLUME 91.9 fL (80.0-94.0); MEAN PLATELET VOLUME 7.9 fl (7.4-10.4); PLATELET 58 x1000/uL (130-400); RED BLOOD CELL COUNT 3.38 mill/uL (4.7-6.1); RED CELL DISTRIBUTION WIDTH 14.2 % (11.6-14.6)
[2020-11-02 12:29] LABS: PROTHROMBIN TIME 10.8 sec (9.6-11.0)
[2020-11-02 13:30] LABS: PLATELET ESTIMATE MARKEDLY DECREASED
[2020-11-02] MEDS: LEVOFLOXACIN 750MG PREMIX 150 ML IV SCH (14:25)
[2020-11-02] MEDS: CEFTAZIDIME PENTAHYDRATE 2 G in DEXT 5% WATER 100 ML IV SCH ×2 (14:25→21:05)
[2020-11-02 14:43] LABS: BG BASE EXCESS 9.9 mmol/L (-2.0-2.0); BG CARBOXYHEMOGLOBIN 1.3 % (0.5-1.5); BG DEOXYHEMOGLOBIN 17.7 % (0.0-5.0); BG FRACTION INSPIRED OXYGEN 90; BG HCO3 ACT 36.8 mmol/L (22.0-26.0); BG METHEMOGLOBIN 0.1 % (0.0-1.5); BG OXYHEMOGLOBIN 80.9 % (94.0-97.0); BG PCO2 61.4 mmHg (35.0-45.0); BG PH 7.396 (7.350-7.450); BG PO2 45.7 mmHg (75.0-100.0); BG SAMPLE SITE LEFT RADIAL; BG TOTAL HEMOGLOBIN 12.2 g/dL (12.0-18.0); BG TOTAL RESPIRATORY RATE 43 b/min; BG VENT MODE VENT - P/C
[2020-11-02] MEDS: CEFAZOLIN 2,000 MG in DEXT 5% WATER 100 ML IV SCH ×2 (15:11→22:41)
[2020-11-03] VITALS (96 sets, daily range): BP systolic 94–170; BP diastolic 49–100
[2020-11-03] MEDS: IPRATROPIUM/ALBUTEROL 0.5-3(2.5)MG/3ML NEB HHN SCH ×4 (00:30→20:43)
[2020-11-03] MEDS: MIDAZOLAM HCL 100 MG in SODIUM CHLORIDE 0.9% 80 ML IV PRN ×4 (01:05→22:04)
[2020-11-03] MEDS: METHYLPREDNISOLONE SOD SUCC 40 MG/ML VIAL IV SCH ×3 (01:58→18:18)
[2020-11-03] MEDS: PROPOFOL 10MG/ML 100ML 100 ML IV PRN ×8 (02:21→22:05)
[2020-11-03 05:34] LABS: HEMATOCRIT. 31.5 % (42.0-52.0); HEMOGLOBIN. 10.8 g/dL (14.0-18.0); MEAN CORPUSCULAR HEMOGLOBIN 31.8 pg (28.0-32.0); MEAN CORPUSCULAR VOLUME 92.9 fL (80.0-94.0); MEAN PLATELET VOLUME 7.7 fl (7.4-10.4); PLATELET 90 x1000/uL (130-400); RED CELL DISTRIBUTION WIDTH 14.2 % (11.6-14.6)
[2020-11-03 05:40] LABS: CHLORIDE 104 mEq/L (98-107)
[2020-11-03] MEDS: ENOXAPARIN 40MG/0.4ML SYR SUBCUT SCH ×2 (05:45→18:18)
[2020-11-03] MEDS: METOCLOPRAMIDE HCL 10MG/2ML VIAL IV SCH ×3 (05:45→18:18)
[2020-11-03] MEDS: CEFTAZIDIME PENTAHYDRATE 2 G in DEXT 5% WATER 100 ML IV SCH ×3 (05:46→21:10)
[2020-11-03] MEDS: HYDRALAZINE 20MG/ML VIAL IV SCH ×3 (05:47→18:00)
[2020-11-03] MEDS: DEXT 5%/0.45% NACL 1000ML 1,000 ML IV SCH (05:54)
[2020-11-03] MEDS: FENTANYL CITRATE/PF 2,500 MCG in SODIUM CHLORIDE 0.9% 200 ML IV PRN ×3 (06:15→21:31)
[2020-11-03] MEDS: CEFAZOLIN 2,000 MG in DEXT 5% WATER 100 ML IV SCH ×3 (06:51→22:24)
[2020-11-03] MEDS: AMLODIPINE 5MG TABLET PO SCH (10:13)
[2020-11-03] MEDS: PANTOPRAZOLE SODIUM 40 MG/VIAL IV SCH (10:17)
[2020-11-03 12:38] LABS: BG BASE EXCESS 12.3 mmol/L (-2.0-2.0); BG CARBOXYHEMOGLOBIN 0.7 % (0.5-1.5); BG FRACTION INSPIRED OXYGEN 100; BG METHEMOGLOBIN 0.1 % (0.0-1.5); BG OXYHEMOGLOBIN 95.2 % (94.0-97.0); BG PCO2 54.5 mmHg (35.0-45.0); BG PH 7.461 (7.350-7.450); BG PO2 82.6 mmHg (75.0-100.0); BG SAMPLE SITE LEFT RADIAL; BG TOTAL HEMOGLOBIN 11.1 g/dL (12.0-18.0); BG TOTAL RESPIRATORY RATE 39 b/min; BG VENT MODE VENT - P/C
[2020-11-03 12:52] LABS: NUCLEATED RED BLOOD CELLS 1 /100 WBC; PLATELET ESTIMATE DECREASED
[2020-11-03] MEDS: LEVOFLOXACIN 750MG PREMIX 150 ML IV SCH (13:21)
[2020-11-04] VITALS (90 sets, daily range): BP systolic 83–151; BP diastolic 50–90
[2020-11-04] MEDS: METOCLOPRAMIDE HCL 10MG/2ML VIAL IV SCH ×4 (00:29→16:55)
[2020-11-04] MEDS: PROPOFOL 10MG/ML 100ML 100 ML IV PRN ×9 (00:45→22:34)
[2020-11-04] MEDS: IPRATROPIUM/ALBUTEROL 0.5-3(2.5)MG/3ML NEB HHN SCH ×4 (00:46→20:52)
[2020-11-04] MEDS: METHYLPREDNISOLONE SOD SUCC 40 MG/ML VIAL IV SCH ×3 (01:19→16:55)
[2020-11-04] MEDS: DEXT 5%/0.45% NACL 1000ML 1,000 ML IV SCH ×2 (01:20→10:53)
[2020-11-04] MEDS: CEFTAZIDIME PENTAHYDRATE 2 G in DEXT 5% WATER 100 ML IV SCH ×3 (05:02→22:04)
[2020-11-04] MEDS: ENOXAPARIN 40MG/0.4ML SYR SUBCUT SCH ×2 (05:02→16:54)
[2020-11-04] MEDS: MIDAZOLAM HCL 100 MG in SODIUM CHLORIDE 0.9% 80 ML IV PRN ×3 (05:03→18:47)
[2020-11-04] MEDS: FENTANYL CITRATE/PF 2,500 MCG in SODIUM CHLORIDE 0.9% 200 ML IV PRN ×3 (05:04→18:47)
[2020-11-04] MEDS: HYDRALAZINE 20MG/ML VIAL IV SCH ×4 (05:06→18:00)
[2020-11-04] MEDS: CEFAZOLIN 2,000 MG in DEXT 5% WATER 100 ML IV SCH ×3 (06:12→23:27)
[2020-11-04 07:46] LABS: BG BASE EXCESS 9.5 mmol/L (-2.0-2.0); BG DEOXYHEMOGLOBIN 2.9 % (0.0-5.0); BG HCO3 ACT 35.7 mmol/L (22.0-26.0); BG METHEMOGLOBIN 0.1 % (0.0-1.5); BG OXYGEN SATURATION 97.1 % (92.0-98.5); BG PCO2 57.1 mmHg (35.0-45.0); BG PH 7.414 (7.350-7.450); BG PO2 98.8 mmHg (75.0-100.0); BG SAMPLE SITE RIGHT RADIAL; BG TOTAL HEMOGLOBIN 11.2 g/dL (12.0-18.0); BG TOTAL RESPIRATORY RATE 41 b/min; BG VENT MODE VENT - P/C
[2020-11-04] MEDS: AMLODIPINE 5MG TABLET PO SCH (08:19)
[2020-11-04] MEDS: PANTOPRAZOLE SODIUM 40 MG/VIAL IV SCH (09:29)
[2020-11-04] MEDS: LEVOFLOXACIN 750MG PREMIX 150 ML IV SCH (13:46)
[2020-11-04] MEDS: LACTULOSE 20G/30ML UDC PO PRN (22:03)
[2020-11-05] VITALS (92 sets, daily range): BP systolic 91–156; BP diastolic 56–115
[2020-11-05] MEDS: METOCLOPRAMIDE HCL 10MG/2ML VIAL IV SCH ×4 (00:22→18:46)
[2020-11-05] MEDS: BISACODYL 10MG SUPP PR PRN (00:22)
[2020-11-05] MEDS: HYDRALAZINE 20MG/ML VIAL IV SCH ×4 (00:22→18:00)
[2020-11-05] MEDS: IPRATROPIUM/ALBUTEROL 0.5-3(2.5)MG/3ML NEB HHN SCH ×4 (00:50→20:32)
[2020-11-05] MEDS: PROPOFOL 10MG/ML 100ML 100 ML IV PRN ×8 (02:04→23:02)
[2020-11-05] MEDS: METHYLPREDNISOLONE SOD SUCC 40 MG/ML VIAL IV SCH ×3 (02:07→18:45)
[2020-11-05] MEDS: MIDAZOLAM HCL 100 MG in SODIUM CHLORIDE 0.9% 80 ML IV PRN ×4 (02:25→23:06)
[2020-11-05] MEDS: FENTANYL CITRATE/PF 2,500 MCG in SODIUM CHLORIDE 0.9% 200 ML IV PRN ×3 (02:57→16:57)
[2020-11-05] MEDS: ENOXAPARIN 40MG/0.4ML SYR SUBCUT SCH ×2 (06:05→18:46)
[2020-11-05] MEDS: LACTULOSE 20G/30ML UDC PO PRN (06:05)
[2020-11-05] MEDS: CEFAZOLIN 2,000 MG in DEXT 5% WATER 100 ML IV SCH ×2 (06:06→18:35)
[2020-11-05] MEDS: CEFTAZIDIME PENTAHYDRATE 2 G in DEXT 5% WATER 100 ML IV SCH ×3 (06:06→22:56)
[2020-11-05] MEDS: AMLODIPINE 5MG TABLET PO SCH (09:00)
[2020-11-05] MEDS: PANTOPRAZOLE SODIUM 40 MG/VIAL IV SCH (09:44)
[2020-11-05 11:48] LABS: BG BASE EXCESS 11.5 mmol/L (-2.0-2.0); BG CARBOXYHEMOGLOBIN 0.6 % (0.5-1.5); BG DEOXYHEMOGLOBIN 9.8 % (0.0-5.0); BG FRACTION INSPIRED OXYGEN 80; BG HCO3 ACT 37.3 mmol/L (22.0-26.0); BG METHEMOGLOBIN 0.3 % (0.0-1.5); BG OXYGEN SATURATION 90.1 % (92.0-98.5); BG OXYHEMOGLOBIN 89.3 % (94.0-97.0); BG PCO2 55.1 mmHg (35.0-45.0); BG PH 7.448 (7.350-7.450); BG SAMPLE SITE RIGHT RADIAL; BG TOTAL HEMOGLOBIN 10.7 g/dL (12.0-18.0); BG VENT MODE VENT - P/C
[2020-11-05] MEDS ORDERED: PROPOFOL 10MG/ML 100ML 100 ML IV PRN ×2 (12:30→13:00)
[2020-11-05] MEDS: DEXT 5%/0.45% NACL 1000ML 1,000 ML IV SCH (14:47)
[2020-11-05] MEDS: LEVOFLOXACIN 750MG PREMIX 150 ML IV SCH (14:50)
[2020-11-05 15:09] LABS: HEMATOCRIT. 29.3 % (42.0-52.0); HEMOGLOBIN. 10.1 g/dL (14.0-18.0); MEAN CORPUSCULAR HEMOGLOBIN 31.9 pg (28.0-32.0); MEAN CORPUSCULAR VOLUME 92.3 fL (80.0-94.0); MEAN PLATELET VOLUME 7.7 fl (7.4-10.4); PLATELET 141 x1000/uL (130-400); RED BLOOD CELL COUNT 3.18 mill/uL (4.7-6.1); RED CELL DISTRIBUTION WIDTH 14.8 % (11.6-14.6)
[2020-11-05 15:11] LABS: CHLORIDE 104 mEq/L (98-107)
[2020-11-05 22:36] LABS: PLATELET ESTIMATE NORMAL
[2020-11-06] VITALS (93 sets, daily range): BP systolic 89–171; BP diastolic 49–91
[2020-11-06] MEDS: CEFAZOLIN 2,000 MG in DEXT 5% WATER 100 ML IV SCH ×4 (00:11→23:25)
[2020-11-06] MEDS: IPRATROPIUM/ALBUTEROL 0.5-3(2.5)MG/3ML NEB HHN SCH ×4 (00:16→21:07)
[2020-11-06] MEDS: FENTANYL CITRATE/PF 2,500 MCG in SODIUM CHLORIDE 0.9% 200 ML IV PRN ×4 (00:29→22:04)
[2020-11-06] MEDS: METOCLOPRAMIDE HCL 10MG/2ML VIAL IV SCH ×5 (00:34→23:25)
[2020-11-06] MEDS: HYDRALAZINE 20MG/ML VIAL IV SCH ×5 (00:35→23:26)
[2020-11-06] MEDS: METHYLPREDNISOLONE SOD SUCC 40 MG/ML VIAL IV SCH ×3 (01:54→17:55)
[2020-11-06] MEDS: PROPOFOL 10MG/ML 100ML 100 ML IV PRN ×9 (01:55→21:41)
[2020-11-06] MEDS: CEFTAZIDIME PENTAHYDRATE 2 G in DEXT 5% WATER 100 ML IV SCH ×3 (05:12→23:04)
[2020-11-06] MEDS: ENOXAPARIN 40MG/0.4ML SYR SUBCUT SCH ×2 (05:13→17:04)
[2020-11-06] MEDS: MIDAZOLAM HCL 100 MG in SODIUM CHLORIDE 0.9% 80 ML IV PRN ×3 (05:49→20:55)
[2020-11-06 08:29] LABS: BG BASE EXCESS 7.8 mmol/L (-2.0-2.0); BG CARBOXYHEMOGLOBIN 1.1 % (0.5-1.5); BG DEOXYHEMOGLOBIN 1.7 % (0.0-5.0); BG HCO3 ACT 33.3 mmol/L (22.0-26.0); BG METHEMOGLOBIN 0.3 % (0.0-1.5); BG OXYGEN SATURATION 98.3 % (92.0-98.5); BG OXYHEMOGLOBIN 96.9 % (94.0-97.0); BG PCO2 51.4 mmHg (35.0-45.0); BG PH 7.429 (7.350-7.450); BG PO2 129.3 mmHg (75.0-100.0); BG SAMPLE SITE RIGHT RADIAL; BG TOTAL HEMOGLOBIN 10.4 g/dL (12.0-18.0); BG VENT MODE VENT - P/C
[2020-11-06] MEDS: AMLODIPINE 5MG TABLET PO SCH (08:30)
[2020-11-06] MEDS: PANTOPRAZOLE SODIUM 40 MG/VIAL IV SCH (08:30)
[2020-11-06] MEDS: LEVOFLOXACIN 750MG PREMIX 150 ML IV SCH (13:42)
[2020-11-06] MEDS: DEXT 5%/0.45% NACL 1000ML 1,000 ML IV SCH (14:25)
[2020-11-06] MEDS ORDERED: CLONIDINE 0.1MG TABLET PO PRN (20:30)
[2020-11-06] MEDS: DILTIAZEM HCL 60MG TABLET PO SCH (20:47)
[2020-11-06] MEDS ORDERED: ACETAMINOPHEN 650MG/20.3ML UDC NG PRN (21:00)
[2020-11-07] VITALS (97 sets, daily range): BP systolic 94–164; BP diastolic 51–92
[2020-11-07] MEDS: PROPOFOL 10MG/ML 100ML 100 ML IV PRN ×9 (00:56→22:24)
[2020-11-07] MEDS: IPRATROPIUM/ALBUTEROL 0.5-3(2.5)MG/3ML NEB HHN SCH ×4 (01:49→20:25)
[2020-11-07] MEDS: METHYLPREDNISOLONE SOD SUCC 40 MG/ML VIAL IV SCH ×3 (02:48→18:25)
[2020-11-07] MEDS: MIDAZOLAM HCL 100 MG in SODIUM CHLORIDE 0.9% 80 ML IV PRN ×4 (03:18→23:49)
[2020-11-07 04:53] LABS: HEMATOCRIT. 31.6 % (42.0-52.0); HEMOGLOBIN. 10.9 g/dL (14.0-18.0); MEAN CORPUSCULAR HEMOGLOBIN 31.4 pg (28.0-32.0); MEAN CORPUSCULAR VOLUME 91.4 fL (80.0-94.0); MEAN PLATELET VOLUME 7.6 fl (7.4-10.4); PLATELET 152 x1000/uL (130-400); RED BLOOD CELL COUNT 3.46 mill/uL (4.7-6.1); RED CELL DISTRIBUTION WIDTH 14.8 % (11.6-14.6)
[2020-11-07 05:01] LABS: CHLORIDE 99 mEq/L (98-107)
[2020-11-07] MEDS: METOCLOPRAMIDE HCL 10MG/2ML VIAL IV SCH ×4 (05:16→23:25)
[2020-11-07] MEDS: HYDRALAZINE 20MG/ML VIAL IV SCH ×4 (05:16→23:25)
[2020-11-07] MEDS: CEFTAZIDIME PENTAHYDRATE 2 G in DEXT 5% WATER 100 ML IV SCH ×3 (05:16→21:19)
[2020-11-07] MEDS: ENOXAPARIN 40MG/0.4ML SYR SUBCUT SCH (05:19)
[2020-11-07] MEDS: FENTANYL CITRATE/PF 2,500 MCG in SODIUM CHLORIDE 0.9% 200 ML IV PRN ×3 (05:50→21:17)
[2020-11-07] MEDS: CEFAZOLIN 2,000 MG in DEXT 5% WATER 100 ML IV SCH ×3 (06:23→23:25)
[2020-11-07 07:51] LABS: BG BASE EXCESS 9.3 mmol/L (-2.0-2.0); BG CARBOXYHEMOGLOBIN 1.4 % (0.5-1.5); BG DEOXYHEMOGLOBIN 4.3 % (0.0-5.0); BG HCO3 ACT 37.2 mmol/L (22.0-26.0); BG METHEMOGLOBIN 0.4 % (0.0-1.5); BG OXYGEN SATURATION 95.6 % (92.0-98.5); BG OXYHEMOGLOBIN 93.9 % (94.0-97.0); BG PH 7.343 (7.350-7.450); BG PO2 88.2 mmHg (75.0-100.0); BG SAMPLE SITE LEFT RADIAL; BG TOTAL HEMOGLOBIN 11.1 g/dL (12.0-18.0); BG VENT MODE VENT - P/C
[2020-11-07] MEDS: PANTOPRAZOLE SODIUM 40 MG/VIAL IV SCH (08:48)
[2020-11-07] MEDS: DILTIAZEM HCL 60MG TABLET PO SCH ×4 (08:48→21:00)
[2020-11-07] MEDS: AMLODIPINE 5MG TABLET PO SCH (08:49)
[2020-11-07 09:04] LABS: NUCLEATED RED BLOOD CELLS 1 /100 WBC; PLATELET ESTIMATE NORMAL
[2020-11-07] MEDS: DEXT 5%/0.45% NACL 1000ML 1,000 ML IV SCH (09:20)
[2020-11-07] MEDS: LEVOFLOXACIN 750MG PREMIX 150 ML IV SCH (13:25)
[2020-11-07 17:07] LABS: CLARITY URINE CLOUDY (CLEAR); COLOR URINE YELLOW (YELLOW); KETONES URINE NEGATIVE (NEGATIVE); LEUKOCYTE ESTERASE URINE NEGATIVE (NEGATIVE); NITRITE URINE NEGATIVE (NEGATIVE); OCCULT BLOOD URINE 2+ (NEGATIVE); PH URINE 5.5 (4.5-8.0); PROTEIN URINE 1+ (NEGATIVE); SPECIFIC GRAVITY URINE 1.021 (1.005-1.030); UROBILINOGEN URINE 0.2 E.U./dL (0.2-1.0)
[2020-11-08] VITALS (95 sets, daily range): BP systolic 99–159; BP diastolic 43–96
[2020-11-08] MEDS: PROPOFOL 10MG/ML 100ML 100 ML IV PRN ×9 (01:31→23:14)
[2020-11-08] MEDS: METHYLPREDNISOLONE SOD SUCC 40 MG/ML VIAL IV SCH ×3 (02:01→17:05)
[2020-11-08] MEDS: IPRATROPIUM/ALBUTEROL 0.5-3(2.5)MG/3ML NEB HHN SCH ×4 (02:09→20:54)
[2020-11-08] MEDS: FENTANYL CITRATE/PF 2,500 MCG in SODIUM CHLORIDE 0.9% 200 ML IV PRN ×3 (05:14→20:09)
[2020-11-08] MEDS: METOCLOPRAMIDE HCL 10MG/2ML VIAL IV SCH ×4 (05:53→23:38)
[2020-11-08] MEDS: CEFTAZIDIME PENTAHYDRATE 2 G in DEXT 5% WATER 100 ML IV SCH ×3 (05:53→21:35)
[2020-11-08] MEDS: HYDRALAZINE 20MG/ML VIAL IV SCH ×4 (05:54→23:38)
[2020-11-08] MEDS: CEFAZOLIN 2,000 MG in DEXT 5% WATER 100 ML IV SCH ×3 (06:21→22:21)
[2020-11-08] MEDS: MIDAZOLAM HCL 100 MG in SODIUM CHLORIDE 0.9% 80 ML IV PRN ×3 (07:48→23:13)
[2020-11-08] MEDS: DILTIAZEM HCL 60MG TABLET PO SCH ×4 (08:25→20:09)
[2020-11-08] MEDS: AMLODIPINE 5MG TABLET PO SCH (08:25)
[2020-11-08] MEDS: PANTOPRAZOLE SODIUM 40 MG/VIAL IV SCH (08:25)
[2020-11-08 08:45] LABS: BG BASE EXCESS 10.1 mmol/L (-2.0-2.0); BG CARBOXYHEMOGLOBIN 0.8 % (0.5-1.5); BG DEOXYHEMOGLOBIN 3.7 % (0.0-5.0); BG FRACTION INSPIRED OXYGEN 95; BG HCO3 ACT 34.4 mmol/L (22.0-26.0); BG METHEMOGLOBIN 0.2 % (0.0-1.5); BG OXYGEN SATURATION 96.3 % (92.0-98.5); BG OXYHEMOGLOBIN 95.3 % (94.0-97.0); BG PCO2 45.8 mmHg (35.0-45.0); BG PH 7.494 (7.350-7.450); BG PO2 85.1 mmHg (75.0-100.0); BG SAMPLE SITE LEFT RADIAL; BG VENT MODE VENT - P/C
[2020-11-08] MEDS: ENOXAPARIN 40MG/0.4ML SYR SUBCUT SCH ×2 (10:54→20:09)
[2020-11-08] MEDS: LEVOFLOXACIN 750MG PREMIX 150 ML IV SCH (13:13)
[2020-11-08] MEDS: DEXT 5%/0.45% NACL 1000ML 1,000 ML IV SCH (17:04)
[2020-11-08] MEDS: LACTULOSE 20G/30ML UDC PO PRN (17:05)
[2020-11-08] MEDS ORDERED: VECURONIUM BROMIDE 10 MG/VIAL IV NR (17:53)
[2020-11-09] VITALS (96 sets, daily range): BP systolic 93–155; BP diastolic 52–95
[2020-11-09] MEDS: IPRATROPIUM/ALBUTEROL 0.5-3(2.5)MG/3ML NEB HHN SCH ×3 (01:17→13:13)
[2020-11-09] MEDS: PROPOFOL 10MG/ML 100ML 100 ML IV PRN ×10 (01:51→23:34)
[2020-11-09] MEDS: METHYLPREDNISOLONE SOD SUCC 40 MG/ML VIAL IV SCH ×3 (01:53→18:39)
[2020-11-09] MEDS: FENTANYL CITRATE/PF 2,500 MCG in SODIUM CHLORIDE 0.9% 200 ML IV PRN ×3 (02:12→16:12)
[2020-11-09] MEDS: CEFTAZIDIME PENTAHYDRATE 2 G in DEXT 5% WATER 100 ML IV SCH ×3 (05:18→21:40)
[2020-11-09] MEDS: HYDRALAZINE 20MG/ML VIAL IV SCH ×3 (05:19→18:40)
[2020-11-09] MEDS: METOCLOPRAMIDE HCL 10MG/2ML VIAL IV SCH ×3 (05:19→18:39)
[2020-11-09] MEDS: MIDAZOLAM HCL 100 MG in SODIUM CHLORIDE 0.9% 80 ML IV PRN ×4 (05:35→20:38)
[2020-11-09 06:14] LABS: CHLORIDE 104 mEq/L (98-107)
[2020-11-09 06:19] LABS: HEMATOCRIT. 28.9 % (42.0-52.0); HEMOGLOBIN. 9.9 g/dL (14.0-18.0); MEAN CORPUSCULAR HEMOGLOBIN 31.2 pg (28.0-32.0); MEAN CORPUSCULAR VOLUME 91.4 fL (80.0-94.0); MEAN PLATELET VOLUME 7.6 fl (7.4-10.4); PLATELET 159 x1000/uL (130-400); RED BLOOD CELL COUNT 3.16 mill/uL (4.7-6.1)
[2020-11-09] MEDS: CEFAZOLIN 2,000 MG in DEXT 5% WATER 100 ML IV SCH ×3 (06:20→23:39)
[2020-11-09 07:42] LABS: BG BASE EXCESS 4.2 mmol/L (-2.0-2.0); BG CARBOXYHEMOGLOBIN 0.6 % (0.5-1.5); BG DEOXYHEMOGLOBIN 9.1 % (0.0-5.0); BG HCO3 ACT 30.2 mmol/L (22.0-26.0); BG METHEMOGLOBIN 0.3 % (0.0-1.5); BG OXYGEN SATURATION 90.8 % (92.0-98.5); BG PCO2 52.1 mmHg (35.0-45.0); BG PH 7.381 (7.350-7.450); BG PO2 64.9 mmHg (75.0-100.0); BG SAMPLE SITE RIGHT RADIAL; BG TOTAL HEMOGLOBIN 10.4 g/dL (12.0-18.0); BG VENT MODE VENT - P/C
[2020-11-09] MEDS: DILTIAZEM HCL 60MG TABLET PO SCH ×4 (08:06→20:49)
[2020-11-09] MEDS: DEXT 5%/0.45% NACL 1000ML 1,000 ML IV SCH ×2 (08:06→21:41)
[2020-11-09] MEDS: AMLODIPINE 5MG TABLET PO SCH (08:07)
[2020-11-09] MEDS: PANTOPRAZOLE SODIUM 40 MG/VIAL IV SCH (08:07)
[2020-11-09] MEDS: ENOXAPARIN 40MG/0.4ML SYR SUBCUT SCH ×2 (08:09→20:52)
[2020-11-09 08:22] LABS: NUCLEATED RED BLOOD CELLS 1 /100 WBC; PLATELET ESTIMATE NORMAL
[2020-11-09] MEDS: LEVOFLOXACIN 750MG PREMIX 150 ML IV SCH (13:48)
[2020-11-10] VITALS (98 sets, daily range): BP systolic 91–156; BP diastolic 58–99
[2020-11-10] MEDS: HYDRALAZINE 20MG/ML VIAL IV SCH ×4 (00:25→17:32)
[2020-11-10] MEDS: METOCLOPRAMIDE HCL 10MG/2ML VIAL IV SCH ×4 (00:25→17:32)
[2020-11-10] MEDS: FENTANYL CITRATE/PF 2,500 MCG in SODIUM CHLORIDE 0.9% 200 ML IV PRN ×4 (01:39→23:34)
[2020-11-10] MEDS: PROPOFOL 10MG/ML 100ML 100 ML IV PRN ×9 (01:41→23:31)
[2020-11-10] MEDS: METHYLPREDNISOLONE SOD SUCC 40 MG/ML VIAL IV SCH ×3 (01:45→17:32)
[2020-11-10] MEDS: MIDAZOLAM HCL 100 MG in SODIUM CHLORIDE 0.9% 80 ML IV PRN ×4 (04:23→21:58)
[2020-11-10] MEDS: CEFAZOLIN 2,000 MG in DEXT 5% WATER 100 ML IV SCH ×3 (06:01→22:01)
[2020-11-10] MEDS: CEFTAZIDIME PENTAHYDRATE 2 G in DEXT 5% WATER 100 ML IV SCH ×3 (06:01→21:03)
[2020-11-10 08:41] LABS: BG BASE EXCESS 12.1 mmol/L (-2.0-2.0); BG CARBOXYHEMOGLOBIN 0.9 % (0.5-1.5); BG DEOXYHEMOGLOBIN 5.3 % (0.0-5.0); BG FRACTION INSPIRED OXYGEN 100; BG HCO3 ACT 38.3 mmol/L (22.0-26.0); BG METHEMOGLOBIN 0.2 % (0.0-1.5); BG OXYGEN SATURATION 94.6 % (92.0-98.5); BG OXYHEMOGLOBIN 93.6 % (94.0-97.0); BG PCO2 58.2 mmHg (35.0-45.0); BG PH 7.436 (7.350-7.450); BG SAMPLE SITE LEFT RADIAL; BG TOTAL HEMOGLOBIN 11.1 g/dL (12.0-18.0); BG VENT MODE VENT - P/C
[2020-11-10] MEDS: DILTIAZEM HCL 60MG TABLET PO SCH ×4 (09:02→20:38)
[2020-11-10] MEDS: PANTOPRAZOLE SODIUM 40 MG/VIAL IV SCH (09:02)
[2020-11-10] MEDS: AMLODIPINE 5MG TABLET PO SCH (09:02)
[2020-11-10] MEDS: ENOXAPARIN 40MG/0.4ML SYR SUBCUT SCH ×2 (09:03→20:37)
[2020-11-10] MEDS: LEVOFLOXACIN 750MG PREMIX 150 ML IV SCH (12:46)
[2020-11-10] MEDS: IPRATROPIUM/ALBUTEROL 0.5-3(2.5)MG/3ML NEB HHN SCH ×2 (15:20→20:10)
[2020-11-11] VITALS (96 sets, daily range): BP systolic 90–159; BP diastolic 47–96
[2020-11-11] MEDS: HYDRALAZINE 20MG/ML VIAL IV SCH ×5 (00:45→23:34)
[2020-11-11] MEDS: METOCLOPRAMIDE HCL 10MG/2ML VIAL IV SCH ×5 (00:49→23:34)
[2020-11-11] MEDS: IPRATROPIUM/ALBUTEROL 0.5-3(2.5)MG/3ML NEB HHN SCH ×4 (02:10→20:23)
[2020-11-11] MEDS: METHYLPREDNISOLONE SOD SUCC 40 MG/ML VIAL IV SCH ×3 (02:48→18:09)
[2020-11-11] MEDS: PROPOFOL 10MG/ML 100ML 100 ML IV PRN ×8 (04:29→23:35)
[2020-11-11] MEDS: MIDAZOLAM HCL 100 MG in SODIUM CHLORIDE 0.9% 80 ML IV PRN ×3 (05:36→20:11)
[2020-11-11] MEDS: CEFTAZIDIME PENTAHYDRATE 2 G in DEXT 5% WATER 100 ML IV SCH ×3 (05:38→21:29)
[2020-11-11] MEDS: FENTANYL CITRATE/PF 2,500 MCG in SODIUM CHLORIDE 0.9% 200 ML IV PRN ×3 (05:38→21:30)
[2020-11-11 06:01] LABS: HEMATOCRIT. 27.9 % (42.0-52.0); HEMOGLOBIN. 9.7 g/dL (14.0-18.0); MEAN CORPUSCULAR HEMOGLOBIN 32.1 pg (28.0-32.0); MEAN CORPUSCULAR VOLUME 92.1 fL (80.0-94.0); MEAN PLATELET VOLUME 7.3 fl (7.4-10.4); PLATELET 152 x1000/uL (130-400); RED BLOOD CELL COUNT 3.03 mill/uL (4.7-6.1); RED CELL DISTRIBUTION WIDTH 15.6 % (11.6-14.6)
[2020-11-11] MEDS: CEFAZOLIN 2,000 MG in DEXT 5% WATER 100 ML IV SCH ×3 (06:01→23:15)
[2020-11-11 06:04] LABS: CHLORIDE 104 mEq/L (98-107)
[2020-11-11 07:55] LABS: PLATELET ESTIMATE NORMAL
[2020-11-11] MEDS: LACTULOSE 20G/30ML UDC PO PRN (08:20)
[2020-11-11] MEDS: PANTOPRAZOLE SODIUM 40 MG/VIAL IV SCH (08:21)
[2020-11-11] MEDS: DILTIAZEM HCL 60MG TABLET PO SCH ×4 (08:21→20:26)
[2020-11-11] MEDS: AMLODIPINE 5MG TABLET PO SCH (08:21)
[2020-11-11] MEDS: ENOXAPARIN 40MG/0.4ML SYR SUBCUT SCH ×2 (08:36→20:27)
[2020-11-11] MEDS: LEVOFLOXACIN 750MG PREMIX 150 ML IV SCH (14:41)
[2020-11-12] VITALS (97 sets, daily range): BP systolic 92–148; BP diastolic 48–89
[2020-11-12] MEDS: LACTULOSE 20G/30ML UDC PO PRN ×2 (00:31→08:25)
[2020-11-12] MEDS: BISACODYL 10MG SUPP PR PRN (00:31)
[2020-11-12] MEDS: IPRATROPIUM/ALBUTEROL 0.5-3(2.5)MG/3ML NEB HHN SCH ×4 (01:36→21:06)
[2020-11-12] MEDS: METHYLPREDNISOLONE SOD SUCC 40 MG/ML VIAL IV SCH ×3 (01:58→18:12)
[2020-11-12] MEDS: MIDAZOLAM HCL 100 MG in SODIUM CHLORIDE 0.9% 80 ML IV PRN ×4 (01:58→22:49)
[2020-11-12] MEDS: PROPOFOL 10MG/ML 100ML 100 ML IV PRN ×9 (01:59→23:30)
[2020-11-12] MEDS: FENTANYL CITRATE/PF 2,500 MCG in SODIUM CHLORIDE 0.9% 200 ML IV PRN ×3 (04:40→18:13)
[2020-11-12] MEDS: CEFTAZIDIME PENTAHYDRATE 2 G in DEXT 5% WATER 100 ML IV SCH ×3 (05:02→21:59)
[2020-11-12] MEDS: METOCLOPRAMIDE HCL 10MG/2ML VIAL IV SCH ×4 (05:03→23:28)
[2020-11-12] MEDS: HYDRALAZINE 20MG/ML VIAL IV SCH ×4 (05:03→23:28)
[2020-11-12] MEDS: CEFAZOLIN 2,000 MG in DEXT 5% WATER 100 ML IV SCH ×3 (06:36→23:16)
[2020-11-12] MEDS: DILTIAZEM HCL 60MG TABLET PO SCH ×4 (08:23→21:59)
[2020-11-12] MEDS: PANTOPRAZOLE SODIUM 40 MG/VIAL IV SCH (08:24)
[2020-11-12] MEDS: ENOXAPARIN 40MG/0.4ML SYR SUBCUT SCH ×2 (08:24→21:59)
[2020-11-12] MEDS: AMLODIPINE 5MG TABLET PO SCH (08:24)
[2020-11-12 08:30] LABS: BG FRACTION INSPIRED OXYGEN 100; BG PEEP (cmH2O) 10 cmH2O; BG SAMPLE SITE Left Radial; BG TIDAL VOLUME(mL) 510 mL; BG VENT MODE VENT - P/C; BG VENT RATE 36 set
[2020-11-12 08:31] LABS: BG PCO2 54.5 mmHg (35.0-45.0); BG PH 7.423 (7.350-7.450); BG PO2 79.9 mmHg (75.0-100.0)
[2020-11-12 08:32] LABS: BG BASE EXCESS 8.9 mmol/L (-2.0-2.0); BG CARBOXYHEMOGLOBIN 1.2 % (0.5-1.5); BG HCO3 ACT 34.8 mmol/L (22.0-26.0); BG METHEMOGLOBIN 0.2 % (0.0-1.5); BG OXYGEN SATURATION 94.9 % (92.0-98.5); BG OXYHEMOGLOBIN 93.6 % (94.0-97.0); BG TOTAL HEMOGLOBIN 10.9 g/dL (12.0-18.0)
[2020-11-12 09:26] LABS: BG CARBOXYHEMOGLOBIN 0.8 % (0.5-1.5); BG FRACTION INSPIRED OXYGEN 90; BG HCO3 ACT 38.2 mmol/L (22.0-26.0); BG METHEMOGLOBIN 0.3 % (0.0-1.5); BG OXYHEMOGLOBIN 94.9 % (94.0-97.0); BG PCO2 59.7 mmHg (35.0-45.0); BG PH 7.424 (7.350-7.450); BG PO2 93.2 mmHg (75.0-100.0); BG SAMPLE SITE RIGHT RADIAL; BG TOTAL HEMOGLOBIN 9.9 g/dL (12.0-18.0); BG VENT MODE VENT - P/C
[2020-11-12] MEDS: LEVOFLOXACIN 750MG PREMIX 150 ML IV SCH (14:01)
[2020-11-13] VITALS (97 sets, daily range): BP systolic 91–140; BP diastolic 50–86
[2020-11-13] MEDS: IPRATROPIUM/ALBUTEROL 0.5-3(2.5)MG/3ML NEB HHN SCH ×4 (00:40→19:46)
[2020-11-13] MEDS: METHYLPREDNISOLONE SOD SUCC 40 MG/ML VIAL IV SCH ×3 (01:23→18:10)
[2020-11-13] MEDS: FENTANYL CITRATE/PF 2,500 MCG in SODIUM CHLORIDE 0.9% 200 ML IV PRN ×4 (01:24→23:02)
[2020-11-13] MEDS: PROPOFOL 10MG/ML 100ML 100 ML IV PRN ×9 (01:25→23:01)
[2020-11-13] MEDS: HYDRALAZINE 20MG/ML VIAL IV SCH ×4 (05:35→23:01)
[2020-11-13] MEDS: METOCLOPRAMIDE HCL 10MG/2ML VIAL IV SCH ×4 (05:36→23:01)
[2020-11-13] MEDS: CEFTAZIDIME PENTAHYDRATE 2 G in DEXT 5% WATER 100 ML IV SCH ×3 (05:36→22:58)
[2020-11-13] MEDS: MIDAZOLAM HCL 100 MG in SODIUM CHLORIDE 0.9% 80 ML IV PRN ×3 (05:37→18:11)
[2020-11-13 06:02] LABS: HEMATOCRIT. 28.9 % (42.0-52.0); MEAN CORPUSCULAR VOLUME 92.1 fL (80.0-94.0); MEAN PLATELET VOLUME 7.4 fl (7.4-10.4); PLATELET 142 x1000/uL (130-400); RED BLOOD CELL COUNT 3.14 mill/uL (4.7-6.1); RED CELL DISTRIBUTION WIDTH 15.7 % (11.6-14.6)
[2020-11-13 06:12] LABS: CHLORIDE 104 mEq/L (98-107)
[2020-11-13] MEDS: CEFAZOLIN 2,000 MG in DEXT 5% WATER 100 ML IV SCH ×3 (06:25→22:59)
[2020-11-13] MEDS: PANTOPRAZOLE SODIUM 40 MG/VIAL IV SCH (08:17)
[2020-11-13] MEDS: AMLODIPINE 5MG TABLET PO SCH (08:18)
[2020-11-13] MEDS: DILTIAZEM HCL 60MG TABLET PO SCH ×4 (08:18→20:30)
[2020-11-13] MEDS: ENOXAPARIN 40MG/0.4ML SYR SUBCUT SCH ×2 (08:21→20:31)
[2020-11-13 09:50] LABS: BG BASE EXCESS 10.9 mmol/L (-2.0-2.0); BG CARBOXYHEMOGLOBIN 1.1 % (0.5-1.5); BG DEOXYHEMOGLOBIN 5.3 % (0.0-5.0); BG FRACTION INSPIRED OXYGEN 80; BG METHEMOGLOBIN 0.3 % (0.0-1.5); BG OXYGEN SATURATION 94.6 % (92.0-98.5); BG OXYHEMOGLOBIN 93.3 % (94.0-97.0); BG PCO2 66.7 mmHg (35.0-45.0); BG PH 7.374 (7.350-7.450); BG PO2 81.7 mmHg (75.0-100.0); BG SAMPLE SITE LEFT RADIAL; BG TOTAL HEMOGLOBIN 9.9 g/dL (12.0-18.0); BG VENT MODE VENT - P/C
[2020-11-13 13:08] LABS: HEMOGLOBIN. 10.2 g/dL (14.0-18.0); MEAN CORPUSCULAR VOLUME 93.7 fL (80.0-94.0); MEAN PLATELET VOLUME 7.3 fl (7.4-10.4); PLATELET 136 x1000/uL (130-400)
[2020-11-13 13:23] LABS: CHLORIDE 104 mEq/L (98-107)
[2020-11-13 14:12] LABS: PLATELET ESTIMATE NORMAL
[2020-11-13 14:28] LABS: PLATELET ESTIMATE NORMAL
[2020-11-13] MEDS: LEVOFLOXACIN 750MG PREMIX 150 ML IV SCH (14:31)
[2020-11-14] VITALS (95 sets, daily range): BP systolic 88–139; BP diastolic 49–85
[2020-11-14] MEDS: IPRATROPIUM/ALBUTEROL 0.5-3(2.5)MG/3ML NEB HHN SCH ×4 (00:19→20:48)
[2020-11-14] MEDS: METHYLPREDNISOLONE SOD SUCC 40 MG/ML VIAL IV SCH ×3 (02:12→17:37)
[2020-11-14] MEDS: PROPOFOL 10MG/ML 100ML 100 ML IV PRN ×8 (02:12→21:33)
[2020-11-14] MEDS: MIDAZOLAM HCL 100 MG in SODIUM CHLORIDE 0.9% 80 ML IV PRN ×3 (02:13→17:38)
[2020-11-14] MEDS: METOCLOPRAMIDE HCL 10MG/2ML VIAL IV SCH ×3 (04:58→17:37)
[2020-11-14] MEDS: HYDRALAZINE 20MG/ML VIAL IV SCH ×3 (04:58→17:37)
[2020-11-14] MEDS: FENTANYL CITRATE/PF 2,500 MCG in SODIUM CHLORIDE 0.9% 200 ML IV PRN ×3 (07:40→21:34)
[2020-11-14] MEDS: DILTIAZEM HCL 60MG TABLET PO SCH ×4 (08:22→21:28)
[2020-11-14] MEDS: PANTOPRAZOLE SODIUM 40 MG/VIAL IV SCH (08:22)
[2020-11-14] MEDS: AMLODIPINE 5MG TABLET PO SCH (08:23)
[2020-11-14 09:18] LABS: BG BASE EXCESS 11.4 mmol/L (-2.0-2.0); BG CARBOXYHEMOGLOBIN 1.5 % (0.5-1.5); BG DEOXYHEMOGLOBIN 5.4 % (0.0-5.0); BG FRACTION INSPIRED OXYGEN 80; BG HCO3 ACT 38.4 mmol/L (22.0-26.0); BG METHEMOGLOBIN 0.2 % (0.0-1.5); BG OXYGEN SATURATION 94.5 % (92.0-98.5); BG OXYHEMOGLOBIN 92.9 % (94.0-97.0); BG PCO2 64.8 mmHg (35.0-45.0); BG PH 7.391 (7.350-7.450); BG PO2 80.2 mmHg (75.0-100.0); BG SAMPLE SITE LEFT RADIAL; BG TOTAL HEMOGLOBIN 10.7 g/dL (12.0-18.0); BG VENT MODE VENT - P/C
[2020-11-14] MEDS: ENOXAPARIN 40MG/0.4ML SYR SUBCUT SCH ×2 (10:12→21:28)
[2020-11-15] VITALS (76 sets, daily range): BP systolic 88–162; BP diastolic 50–99
[2020-11-15] MEDS: METHYLPREDNISOLONE SOD SUCC 40 MG/ML VIAL IV SCH ×3 (01:03→17:48)
[2020-11-15] MEDS: METOCLOPRAMIDE HCL 10MG/2ML VIAL IV SCH ×5 (01:04→23:06)
[2020-11-15] MEDS: HYDRALAZINE 20MG/ML VIAL IV SCH ×5 (01:04→23:06)
[2020-11-15] MEDS: PROPOFOL 10MG/ML 100ML 100 ML IV PRN ×8 (01:06→23:00)
[2020-11-15] MEDS: MIDAZOLAM HCL 100 MG in SODIUM CHLORIDE 0.9% 80 ML IV PRN ×4 (01:10→20:04)
[2020-11-15] MEDS: IPRATROPIUM/ALBUTEROL 0.5-3(2.5)MG/3ML NEB HHN SCH ×4 (02:15→21:54)
[2020-11-15 05:51] LABS: PROTHROMBIN TIME 10.6 sec (9.6-11.0)
[2020-11-15] MEDS: FENTANYL CITRATE/PF 2,500 MCG in SODIUM CHLORIDE 0.9% 200 ML IV PRN ×3 (06:09→20:14)
[2020-11-15 06:28] LABS: CHLORIDE 101 mEq/L (98-107)
[2020-11-15 08:53] LABS: BG BASE EXCESS 10.8 mmol/L (-2.0-2.0); BG CARBOXYHEMOGLOBIN 1.6 % (0.5-1.5); BG DEOXYHEMOGLOBIN 11.7 % (0.0-5.0); BG FRACTION INSPIRED OXYGEN 70; BG HCO3 ACT 37.3 mmol/L (22.0-26.0); BG METHEMOGLOBIN 0.2 % (0.0-1.5); BG OXYGEN SATURATION 88.1 % (92.0-98.5); BG OXYHEMOGLOBIN 86.5 % (94.0-97.0); BG PCO2 60.4 mmHg (35.0-45.0); BG PH 7.408 (7.350-7.450); BG PO2 57.4 mmHg (75.0-100.0); BG SAMPLE SITE LEFT RADIAL; BG TOTAL HEMOGLOBIN 10.6 g/dL (12.0-18.0); BG VENT MODE VENT - P/C
[2020-11-15 09:00] LABS: HEMATOCRIT. 28.6 % (42.0-52.0); HEMOGLOBIN. 9.8 g/dL (14.0-18.0); MEAN CORPUSCULAR VOLUME 93.2 fL (80.0-94.0); MEAN PLATELET VOLUME 7.2 fl (7.4-10.4); PLATELET 131 x1000/uL (130-400); RED BLOOD CELL COUNT 3.07 mill/uL (4.7-6.1); RED CELL DISTRIBUTION WIDTH 16.4 % (11.6-14.6)
[2020-11-15] MEDS: AMLODIPINE 5MG TABLET PO SCH (09:00)
[2020-11-15] MEDS: DILTIAZEM HCL 60MG TABLET PO SCH ×4 (09:00→20:12)
[2020-11-15] MEDS: ENOXAPARIN 40MG/0.4ML SYR SUBCUT SCH ×2 (09:04→20:13)
[2020-11-15] MEDS: PANTOPRAZOLE SODIUM 40 MG/VIAL IV SCH (09:04)
[2020-11-15 10:54] LABS: PLATELET ESTIMATE NORMAL
[2020-11-16] VITALS (80 sets, daily range): BP systolic 94–153; BP diastolic 49–93
[2020-11-16] MEDS: PROPOFOL 10MG/ML 100ML 100 ML IV PRN ×7 (01:08→21:21)
[2020-11-16] MEDS: IPRATROPIUM/ALBUTEROL 0.5-3(2.5)MG/3ML NEB HHN SCH ×3 (01:11→20:16)
[2020-11-16] MEDS: METHYLPREDNISOLONE SOD SUCC 40 MG/ML VIAL IV SCH ×3 (02:27→17:46)
[2020-11-16] MEDS: FENTANYL CITRATE/PF 2,500 MCG in SODIUM CHLORIDE 0.9% 200 ML IV PRN ×3 (03:07→17:45)
[2020-11-16] MEDS: MIDAZOLAM HCL 100 MG in SODIUM CHLORIDE 0.9% 80 ML IV PRN ×3 (03:07→17:44)
[2020-11-16] MEDS: HYDRALAZINE 20MG/ML VIAL IV SCH ×3 (05:16→17:45)
[2020-11-16] MEDS: METOCLOPRAMIDE HCL 10MG/2ML VIAL IV SCH ×3 (05:16→17:44)
[2020-11-16 05:56] LABS: CHLORIDE 103 mEq/L (98-107)
[2020-11-16 06:00] LABS: HEMATOCRIT. 27.7 % (42.0-52.0); HEMOGLOBIN. 9.8 g/dL (14.0-18.0); MEAN CORPUSCULAR HEMOGLOBIN 32.7 pg (28.0-32.0); MEAN CORPUSCULAR VOLUME 92.5 fL (80.0-94.0); MEAN PLATELET VOLUME 7.5 fl (7.4-10.4); PLATELET 126 x1000/uL (130-400); RED BLOOD CELL COUNT 2.99 mill/uL (4.7-6.1); RED CELL DISTRIBUTION WIDTH 15.7 % (11.6-14.6)
[2020-11-16 08:11] LABS: BG BASE EXCESS 8.5 mmol/L (-2.0-2.0); BG DEOXYHEMOGLOBIN 15.5 % (0.0-5.0); BG HCO3 ACT 33.9 mmol/L (22.0-26.0); BG METHEMOGLOBIN 0.3 % (0.0-1.5); BG OXYGEN SATURATION 84.1 % (92.0-98.5); BG OXYHEMOGLOBIN 82.2 % (94.0-97.0); BG PCO2 50.8 mmHg (35.0-45.0); BG PH 7.442 (7.350-7.450); BG PO2 48.7 mmHg (75.0-100.0); BG SAMPLE SITE LEFT RADIAL; BG VENT MODE VENT - P/C
[2020-11-16] MEDS: PANTOPRAZOLE SODIUM 40 MG/VIAL IV SCH (09:37)
[2020-11-16] MEDS: ENOXAPARIN 40MG/0.4ML SYR SUBCUT SCH ×2 (09:38→20:56)
[2020-11-16] MEDS: AMLODIPINE 5MG TABLET PO SCH (09:45)
[2020-11-16] MEDS: DILTIAZEM HCL 60MG TABLET PO SCH ×4 (09:46→20:16)
[2020-11-16 11:04] LABS: PLATELET ESTIMATE SLIGHTLY DECREASED
[2020-11-17] VITALS (92 sets, daily range): BP systolic 94–147; BP diastolic 53–99
[2020-11-17] MEDS: PROPOFOL 10MG/ML 100ML 100 ML IV PRN ×8 (00:06→21:10)
[2020-11-17] MEDS: METOCLOPRAMIDE HCL 10MG/2ML VIAL IV SCH ×3 (00:16→11:34)
[2020-11-17] MEDS: IPRATROPIUM/ALBUTEROL 0.5-3(2.5)MG/3ML NEB HHN SCH ×4 (00:33→20:44)
[2020-11-17] MEDS: FENTANYL CITRATE/PF 2,500 MCG in SODIUM CHLORIDE 0.9% 200 ML IV PRN ×4 (00:45→23:26)
[2020-11-17] MEDS: MIDAZOLAM HCL 100 MG in SODIUM CHLORIDE 0.9% 80 ML IV PRN ×4 (01:11→21:11)
[2020-11-17] MEDS: METHYLPREDNISOLONE SOD SUCC 40 MG/ML VIAL IV SCH ×3 (01:27→17:18)
[2020-11-17] MEDS: HYDRALAZINE 20MG/ML VIAL IV SCH ×4 (05:53→17:15)
[2020-11-17 05:59] LABS: HEMATOCRIT. 30.7 % (42.0-52.0); HEMOGLOBIN. 10.5 g/dL (14.0-18.0); MEAN CORPUSCULAR HEMOGLOBIN 31.5 pg (28.0-32.0); MEAN CORPUSCULAR VOLUME 92.4 fL (80.0-94.0); MEAN PLATELET VOLUME 7.6 fl (7.4-10.4); PLATELET 127 x1000/uL (130-400); RED BLOOD CELL COUNT 3.33 mill/uL (4.7-6.1); RED CELL DISTRIBUTION WIDTH 16.5 % (11.6-14.6)
[2020-11-17 06:08] LABS: CHLORIDE 102 mEq/L (98-107)
[2020-11-17] MEDS: PANTOPRAZOLE SODIUM 40 MG/VIAL IV SCH (08:22)
[2020-11-17] MEDS: ENOXAPARIN 40MG/0.4ML SYR SUBCUT SCH (08:22)
[2020-11-17] MEDS: AMLODIPINE 5MG TABLET PO SCH (08:22)
[2020-11-17] MEDS: DILTIAZEM HCL 60MG TABLET PO SCH ×4 (08:22→21:43)
[2020-11-17 10:31] LABS: BG BASE EXCESS 8.3 mmol/L (-2.0-2.0); BG CARBOXYHEMOGLOBIN 1.2 % (0.5-1.5); BG DEOXYHEMOGLOBIN 9.5 % (0.0-5.0); BG FRACTION INSPIRED OXYGEN 70; BG METHEMOGLOBIN 0.1 % (0.0-1.5); BG OXYGEN SATURATION 90.4 % (92.0-98.5); BG OXYHEMOGLOBIN 89.2 % (94.0-97.0); BG PCO2 52.5 mmHg (35.0-45.0); BG PH 7.429 (7.350-7.450); BG PO2 62.3 mmHg (75.0-100.0); BG SAMPLE SITE LEFT RADIAL; BG TOTAL HEMOGLOBIN 11.3 g/dL (12.0-18.0); BG VENT MODE VENT - P/C
[2020-11-17 11:03] LABS: NUCLEATED RED BLOOD CELLS 1 /100 WBC; PLATELET ESTIMATE SLIGHTLY DECREASED
[2020-11-18] VITALS (76 sets, daily range): BP systolic 49–156; BP diastolic 25–96
[2020-11-18] MEDS: PROPOFOL 10MG/ML 100ML 100 ML IV PRN ×9 (00:11→22:09)
[2020-11-18] MEDS: IPRATROPIUM/ALBUTEROL 0.5-3(2.5)MG/3ML NEB HHN SCH ×4 (00:24→20:38)
[2020-11-18] MEDS: HYDRALAZINE 20MG/ML VIAL IV SCH ×4 (00:56→17:11)
[2020-11-18] MEDS: METHYLPREDNISOLONE SOD SUCC 40 MG/ML VIAL IV SCH ×3 (03:10→17:25)
[2020-11-18] MEDS: MIDAZOLAM HCL 100 MG in SODIUM CHLORIDE 0.9% 80 ML IV PRN ×3 (04:07→19:07)
[2020-11-18 04:36] LABS: HEMOGLOBIN. 10.8 g/dL (14.0-18.0); MEAN CORPUSCULAR HEMOGLOBIN 31.5 pg (28.0-32.0); MEAN CORPUSCULAR VOLUME 93.2 fL (80.0-94.0); MEAN PLATELET VOLUME 7.4 fl (7.4-10.4); PLATELET 129 x1000/uL (130-400); RED BLOOD CELL COUNT 3.44 mill/uL (4.7-6.1); RED CELL DISTRIBUTION WIDTH 16.8 % (11.6-14.6)
[2020-11-18 04:43] LABS: CHLORIDE 102 mEq/L (98-107)
[2020-11-18 07:34] LABS: PLATELET ESTIMATE SLIGHTLY DECREASED
[2020-11-18] MEDS: FENTANYL CITRATE/PF 2,500 MCG in SODIUM CHLORIDE 0.9% 200 ML IV PRN ×3 (07:42→23:01)
[2020-11-18 08:15] LABS: BG BASE EXCESS 8.1 mmol/L (-2.0-2.0); BG CARBOXYHEMOGLOBIN 1.3 % (0.5-1.5); BG DEOXYHEMOGLOBIN 6.7 % (0.0-5.0); BG HCO3 ACT 33.5 mmol/L (22.0-26.0); BG METHEMOGLOBIN 0.1 % (0.0-1.5); BG OXYGEN SATURATION 93.2 % (92.0-98.5); BG OXYHEMOGLOBIN 91.9 % (94.0-97.0); BG PH 7.435 (7.350-7.450); BG PO2 73.5 mmHg (75.0-100.0); BG SAMPLE SITE RIGHT RADIAL; BG TOTAL HEMOGLOBIN 10.7 g/dL (12.0-18.0); BG VENT MODE VENT - P/C
[2020-11-18] MEDS: PANTOPRAZOLE SODIUM 40 MG/VIAL IV SCH (08:42)
[2020-11-18] MEDS: DILTIAZEM HCL 60MG TABLET PO SCH ×4 (08:43→21:00)
[2020-11-18] MEDS: AMLODIPINE 5MG TABLET PO SCH (08:43)
[2020-11-18] MEDS ORDERED: VECURONIUM BROMIDE 10 MG/VIAL IV SCH ×2 (10:00→15:00)
[2020-11-18] MEDS ORDERED: SODIUM CHLORIDE 0.9% 500 ML IV SCH (15:00)
[2020-11-18] MEDS ORDERED: NOREPINEPHRINE 8 MG in DEXT 5% WATER 242 ML IV PRN (15:30)
[2020-11-18] MEDS: NOREPINEPHRINE 8 MG in DEXT 5% WATER 242 ML IV PRN ×2 (15:53→19:06)
[2020-11-18 16:10] LABS: BG BASE EXCESS 1.6 mmol/L (-2.0-2.0); BG CARBOXYHEMOGLOBIN 2.1 % (0.5-1.5); BG DEOXYHEMOGLOBIN 17.3 % (0.0-5.0); BG HCO3 ACT 29.1 mmol/L (22.0-26.0); BG METHEMOGLOBIN 0.3 % (0.0-1.5); BG OXYGEN SATURATION 82.3 % (92.0-98.5); BG OXYHEMOGLOBIN 80.3 % (94.0-97.0); BG PCO2 60.5 mmHg (35.0-45.0); BG PO2 53.4 mmHg (75.0-100.0); BG SAMPLE SITE RIGHT RADIAL; BG TOTAL HEMOGLOBIN 11.1 g/dL (12.0-18.0); BG VENT MODE VENT - P/C
[2020-11-18] MEDS ORDERED: VECURONIUM BROMIDE 10 MG/VIAL IV ONE (17:30)
[2020-11-18] MEDS: PHENYLEPHRINE 100 MG in DEXT 5% WATER 240 ML IV PRN ×2 (19:07→23:27)
[2020-11-18] MEDS: NOREPINEPHRINE 32 MG in DEXT 5% WATER 218 ML IV PRN (21:06)
[2020-11-19] VITALS (24 sets, daily range): BP systolic 42–98; BP diastolic 29–72
[2020-11-19] MEDS: IPRATROPIUM/ALBUTEROL 0.5-3(2.5)MG/3ML NEB HHN SCH (00:37)
[2020-11-19] MEDS: PROPOFOL 10MG/ML 100ML 100 ML IV PRN ×2 (01:13→03:29)
[2020-11-19] MEDS ORDERED: VASOPRESSIN 20 UNIT in SODIUM CHLORIDE 0.9% 99 ML IV PRN (01:45)
[2020-11-19] MEDS: MIDAZOLAM HCL 100 MG in SODIUM CHLORIDE 0.9% 80 ML IV PRN (01:57)
[2020-11-19] MEDS: METHYLPREDNISOLONE SOD SUCC 40 MG/ML VIAL IV SCH (02:54)
[2020-11-19 02:55] LABS: BG BASE EXCESS -3.4 mmol/L (-2.0-2.0); BG DEOXYHEMOGLOBIN 36.8 % (0.0-5.0); BG FRACTION INSPIRED OXYGEN 100; BG HCO3 ACT 31.7 mmol/L (22.0-26.0); BG METHEMOGLOBIN 0.3 % (0.0-1.5); BG OXYGEN SATURATION 62.3 % (92.0-98.5); BG OXYHEMOGLOBIN 60.9 % (94.0-97.0); BG PCO2 147.4 mmHg (35.0-45.0); BG PO2 42.1 mmHg (75.0-100.0); BG SAMPLE SITE RIGHT RADIAL; BG TOTAL HEMOGLOBIN 11.5 g/dL (12.0-18.0); BG VENT MODE VENT - P/C
[2020-11-19] MEDS: NOREPINEPHRINE 32 MG in DEXT 5% WATER 218 ML IV PRN (03:26)
[2020-11-19] MEDS: PHENYLEPHRINE 100 MG in DEXT 5% WATER 240 ML IV PRN (03:40)
[2020-11-19] MEDS ORDERED: VECURONIUM BROMIDE 10 MG/VIAL IV NR (05:00)
[2020-11-19] MEDS: HYDRALAZINE 20MG/ML VIAL IV SCH ×2 (05:07)
[2020-11-19] MEDS ORDERED: DEXTROSE 50% WATER 50ML SYRINGE IV ONE (08:40)
[2020-11-19] MEDS ORDERED: EPINEPHRINE 0.1MG/ML (1:10,000) 10ML SYR ONE (08:40)
[2020-11-19] MEDS ORDERED: ATROPINE SULFATE 1MG/10ML SYR ONE (08:40)
[2020-11-19] MEDS ORDERED: SODIUM BICARBONATE 8.4% 1 MEQ/ML 50ML SYR IV ONE (08:40)
[2020-11-19] MEDS ORDERED: CALCIUM CHLORIDE 1GM/10ML SYR IV ONE (08:40)
== END 2020-11-19 11:00 | DRG 870 ==
LOC: ER 11:24 → EDBEDREQSVC 14:47 → EDBEDREQ 14:47 → ENRESERV 20:40 → 7WST 21:40 → MICUSO 10-11 23:30
PROVIDERS: ADMIT Internal Medicine; ATTEND Internal Medicine
PROC: 5A09557 Assistance with Respiratory Ventilation, Greater than 96 Consecutive Hours, Continuous Positive Airway Pressure (ICD-10-PCS; 2020-10-09)
PROC: 02HV33Z Insertion of Infusion Device into Superior Vena Cava, Percutaneous Approach (ICD-10-PCS; principal; 2020-10-17)
PROC: 5A1955Z Respiratory Ventilation, Greater than 96 Consecutive Hours (ICD-10-PCS; 2020-10-17)
PROC: B548ZZA Ultrasonography of Superior Vena Cava, Guidance (ICD-10-PCS; 2020-10-17)
PROC: 0BH17EZ Insertion of Endotracheal Airway into Trachea, Via Natural or Artificial Opening (ICD-10-PCS; 2020-10-17)
PROC: 05H433Z Insertion of Infusion Device into Left Innominate Vein, Percutaneous Approach (ICD-10-PCS; 2020-11-03)
PROC: B54NZZA Ultrasonography of Left Upper Extremity Veins, Guidance (ICD-10-PCS; 2020-11-03)
PROC: 5A0945A Assistance with Respiratory Ventilation, 24-96 Consecutive Hours, High Flow/Velocity Cannula (ICD-10-PCS; 2020-11-03)
PROC: 5A12012 Performance of Cardiac Output, Single, Manual (ICD-10-PCS; 2020-11-19)
DX: A41.89 Other specified sepsis (principal); U07.1 COVID-19; J12.82 Pneumonia due to coronavirus disease 2019; R65.21 Severe sepsis with septic shock; J80 Acute respiratory distress syndrome; E87.2 Acidosis; G93.40 Encephalopathy, unspecified; Z68.41 Body mass index [BMI] 40.0-44.9, adult; E66.01 Morbid (severe) obesity due to excess calories; E83.51 Hypocalcemia; F41.9 Anxiety disorder, unspecified; Z71.3 Dietary counseling and surveillance; X58.XXXA Exposure to other specified factors, initial encounter; L85.3 Xerosis cutis; I73.9 Peripheral vascular disease, unspecified; S90.422A Blister (nonthermal), left great toe, initial encounter; S90.421A Blister (nonthermal), right great toe, initial encounter; D69.6 Thrombocytopenia, unspecified; S00.432A Contusion of left ear, initial encounter; I46.9 Cardiac arrest, cause unspecified; D64.9 Anemia, unspecified; S00.80XA Unspecified superficial injury of other part of head, initial encounter; Y93.89 Activity, other specified; Y92.89 Other specified places as the place of occurrence of the external cause; Y99.8 Other external cause status
CPT/HCPCS: 31500; 36415; 36573; 36600; 71045; 71275; 76937; 80048; 80053; 80061; 80076; 80202; 81003; 82040; 82375; 82550; 82553; 82607; 82728; 82746; 82805; 82962; 83036; 83540; 83550; 83735; 83880; 84100; 84134; 84145; 84478; 84484; 85025; 85379; 86140; 87070; 87077; 87186; 87426; 92950; 93005; 93306; 93970; 94002; 94003; 94640; 94660; 99291; A6261; C1725; C1769; C9113; J0330; J0360; J0456; J0461; J0690; J0692; J0696; J0713; J1100; J1650; J1956; J2060; J2250; J2370; J2704; J2765; J2920; J2930; J3010; J3370; J3490; J7040; J7050; J7060; Q9967; U0003; U0005; A4315